=== PATIENT | male | born 1955 | race Caucasian/White ===

== ENCOUNTER → 2016-07-15 | Outpatient (CLI) | payer MEDICARE, OTHER ==
[2016-07-15 12:06] LABS: Non-African American GFR(MDRD) >60 (>60 ml/min/1.73 sqM)
--- NOTE | 2016-07-15 13:55 | MR ---
EXAMINATION TYPE: MR iac wo/w con DATE OF EXAM: 07/15/2016 1:44 PM COMPARISON: 04/02/2012 HISTORY: Vertigo T1-weighted sagittal, diffusion, T2, and FLAIR axial views of the brain are submitted. The high-reso lution T2 axial and postcontrast T1 axial and coronal views of the IACs are submitted. There is no pathologic enhancement of the seventh and eighth cranial nerve complex. There is no acou stic neuroma. Exam is limited by motion artifact no cerebellopontine angle mass. Changes of chronic sinusitis noted. Moderate generalized degenerative change. Nonspecific bilateral a reas of abnormal signal in the white matter are noted. IMPRESSION: 1. No evidence of cerebellopontine angle mass or acoustic schwannoma. 2. Nonspecific white matter changes most typical remote microvascular ischemia. 3. Exam is limited due to extensive motion artifact
== END | disposition home or self-care (01) ==
LOC: RADMRIMAIN 11:34
PROVIDERS: ATTEND Psychiatry & Neurology Neurology
DX: R90.82 White matter disease, unspecified (principal); R42 Dizziness and giddiness; Z13.89 Encounter for screening for other disorder
CPT/HCPCS: 82565; 70553; 36415; A9577

== ENCOUNTER → 2017-01-10 | Outpatient (CLI) | payer MEDICARE, OTHER ==
[2017-01-10 08:58] LABS: CH 33.8; HCT 45.9 % (39.0-53.0); HDW 3.32; HGB 16.6 gm/dL (13.0-17.5); Hyperchromasia Slight; MCH 33.4 pg (25.0-35.0); MCHC 36.3 g/dL (31.0-37.0); Mean Platelet Volume 7.2; RBC 4.99 m/uL (4.30-5.90); RDW 14.3 % (11.5-15.5); WBC 4.9 k/uL (3.8-10.6)
[2017-01-10 09:20] LABS: Anion Gap 12 mmol/L; Blood Urea Nitrogen 23 mg/dL (9-20); Calcium 9.4 mg/dL (8.4-10.2); Carbon Dioxide 26 mmol/L (22-30); Chloride 104 mmol/L (98-107); Cholesterol 173 mg/dL (<200); Glucose 101 mg/dL (74-99); HDL Cholesterol 42 mg/dL (40-60); Non-African American GFR(MDRD) >60 (>60 ml/min/1.73 sqM); Potassium 4.4 mmol/L (3.5-5.1); Sodium 142 mmol/L (137-145); Triglycerides 242 mg/dL (<150)
== END | disposition home or self-care (01) ==
LOC: LABWHC1 08:29
PROVIDERS: ATTEND Internal Medicine Interventional Cardiology
DX: N18.9 Chronic kidney disease, unspecified (principal)
CPT/HCPCS: 36415; 80048; 80061; 85027

== ENCOUNTER → 2017-09-19 | Outpatient (CLI) | payer MEDICARE, OTHER ==
[2017-09-19 11:05] LABS: HCT 49.2 % (39.0-53.0); HGB 17.1 gm/dL (13.0-17.5); Hyperchromasia Moderate; MCH 31.1 pg (25.0-35.0); MCHC 34.8 g/dL (31.0-37.0); MCV 89.3 fL (80.0-100.0); Mean Platelet Volume 6.8; Platelet Count 184 k/uL (150-450); Poikilocytosis Slight; RBC 5.51 m/uL (4.30-5.90); RDW 13.9 % (11.5-15.5); WBC 4.9 k/uL (3.8-10.6)
[2017-09-19 11:21] LABS: Calcium 10.2 mg/dL (8.4-10.2); Potassium 4.7 mmol/L (3.5-5.1)
== END | disposition home or self-care (01) ==
LOC: LABWHC1 10:44
PROVIDERS: ATTEND Internal Medicine Interventional Cardiology
DX: N18.9 Chronic kidney disease, unspecified (principal); I12.9 Hypertensive chronic kidney disease with stage 1 through stage 4 chronic kidney disease, or unspecified chronic kidney disease
CPT/HCPCS: 36415; 80048; 80061; 85027

== ENCOUNTER → 2018-01-11 | Outpatient (CLI) | payer MEDICARE, OTHER ==
[2018-01-11 11:38] LABS: ALT 41 U/L (21-72); AST 26 U/L (17-59); Cholesterol 192 mg/dL (<200); HDL Cholesterol 40 mg/dL (40-60); LDL Cholesterol,Calculated 113 mg/dL (0-99); Triglycerides 196 mg/dL (<150)
== END | disposition home or self-care (01) ==
LOC: LABWHC1 11:09
PROVIDERS: ATTEND Nurse Practitioner Adult Health
DX: E78.2 Mixed hyperlipidemia (principal)
CPT/HCPCS: 36415; 80061; 84450; 84460

== ENCOUNTER → 2018-08-04 | Outpatient (CLI) | payer MEDICARE, OTHER ==
[2018-08-04 08:36] LABS: HCT 49.4 % (39.0-53.0); HGB 17.2 gm/dL (13.0-17.5); MCH 31.9 pg (25.0-35.0); MCHC 34.9 g/dL (31.0-37.0); MCV 91.4 fL (80.0-100.0); Mean Platelet Volume 6.6; Platelet Count 189 k/uL (150-450); WBC 5.8 k/uL (3.8-10.6)
[2018-08-04 17:40] LABS: Anion Gap 5.5 mmol/L (4.00-12.00); Calcium 9.3 mg/dL (8.7-10.3); Carbon Dioxide 26.5 mmol/L (21.6-31.8); Potassium 4.7 mmol/L (3.5-5.5)
== END | disposition home or self-care (01) ==
LOC: LABWHC1 08-03 10:02
PROVIDERS: ATTEND Internal Medicine Interventional Cardiology
DX: E78.5 Hyperlipidemia, unspecified (principal); I10 Essential (primary) hypertension
CPT/HCPCS: 36415; 80048; 80061; 85027

== ENCOUNTER → 2021-01-08 | Outpatient (CLI) | payer MEDICARE, OTHER ==
--- NOTE | 2021-01-08 09:21 | MR ---
EXAMINATION TYPE: MR knee RT wo con DATE OF EXAM: 01/08/2021 COMPARISON: 04/18/2013 HISTORY: Right knee pain, knee buckled, trouble walking TECHNIQUE: Multiplanar, multisequence imaging of the right knee is performed without IV contrast. FINDINGS: This study is markedly degraded by motion. MEDIAL MENISCUS: Grossly intact. LATERAL MENISCUS: There is a macerated lateral meniscal tear. CRUCIATE LIGAMENTS: The anterior and posterior cruciate ligaments are intact and unremarkable. COLLATERAL LIGAMENTS: The medial collateral ligament is intact. The iliotibial and and biceps femoris are intact. The lateral collateral ligament is not well seen. EXTENSOR MECHANISM: Visualized quadriceps and patellar tendons are intact. EFFUSION: There is a large knee joint effusion which contains debris. POPLITEAL CYST: No popliteal/العراقي cyst. CARTILAGE: There are full-thickness articular cartilage defects of the lateral femoral condyle and la teral tibial plateau (grade 4). There are near full-thickness cartilage defects of the patella and tr ochlea (grade 3). There are partial-thickness articular cartilage defects of the medial femoral condy le and medial tibial plateau (grade 2-3). BONE MARROW SIGNAL: No focal abnormal marrow signal is appreciated. OTHER: There is a 1.6 cm heterogeneous lesion in the popliteal fossa. IMPRESSION: Severely motion degraded study. 1. Macerated lateral meniscal tear. 2. Lateral collateral ligament is not well seen 3. Tricompartmental articular cartilage defects. 4. Large debris-containing joint effusion. 5. 1.6 cm heterogeneous lesion in the popliteal fossa is nonspecific but may represent intra-articula r bodies. Correlation with plain radiograph may be helpful.
== END | disposition home or self-care (01) ==
LOC: RADMRIMAIN 08:05
PROVIDERS: ATTEND Family Medicine
DX: M23.300 Other meniscus derangements, unspecified lateral meniscus, right knee (principal); M23.91 Unspecified internal derangement of right knee; M25.461 Effusion, right knee

== ENCOUNTER → 2021-02-08 | Outpatient (CLI) | payer MEDICARE, OTHER ==
[2021-02-08 07:35] LABS: HCT 47.7 % (39.0-53.0); HGB 16.3 gm/dL (13.0-17.5); MCH 31.4 pg (25.0-35.0); MCHC 34.1 g/dL (31.0-37.0); MCV 91.9 fL (80.0-100.0); Mean Platelet Volume 7.1; Platelet Count 221 k/uL (150-450); Poikilocytosis Slight; RBC 5.18 m/uL (4.30-5.90); RDW 14.1 % (11.5-15.5); WBC 6.3 k/uL (3.8-10.6)
[2021-02-08 07:46] LABS: ALT 17 U/L (4-49); AST 23 U/L (17-59); African American GFR (CKD) >90 (>60 ml/min/1.73 sqM); Albumin 4.5 g/dL (3.5-5.0); Alkaline Phosphatase 89 U/L (38-126); Anion Gap 9 mmol/L; Blood Urea Nitrogen 16 mg/dL (9-20); Calcium 9.6 mg/dL (8.4-10.2); Carbon Dioxide 24 mmol/L (22-30); Chloride 107 mmol/L (98-107); Glucose 126 mg/dL (74-99); Non-African American GFR(CKD) 81 (>60 ml/min/1.73 sqM); Potassium 4.1 mmol/L (3.5-5.1); Sodium 140 mmol/L (137-145)
[2021-02-08 08:05] LABS: Appearance,Urine Clear (Clear); Bilirubin,Urine Negative (Negative); Blood,Urine Negative (Negative); Color,Urine Yellow; Glucose,Urine (UA) Negative (Negative); Ketones,Urine Negative (Negative); Leukocyte Esterase,Urine Negative (Negative); Nitrite,Urine Negative (Negative); PH, Urine 5.5 (5.0-8.0); Protein,Urine Negative (Negative); Specific Gravity,Urine 1.019 (1.001-1.035); Urobilinogen,Urine <2.0 mg/dL (<2.0)
== END | disposition home or self-care (01) ==
LOC: LABPAT 07:01
PROVIDERS: ATTEND Orthopaedic Surgery
DX: Z01.812 Encounter for preprocedural laboratory examination (principal)
CPT/HCPCS: 36415; 80053; 81003; 85027; 85610; 85730; 87070

== ENCOUNTER → 2021-02-10 | Outpatient (CLI) | payer MEDICARE, OTHER | END | disposition home or self-care (01) | LOC: LABPAT 07:05 | PROVIDERS: ATTEND Orthopaedic Surgery | DX: Z01.818 Encounter for other preprocedural examination (principal); I48.91 Unspecified atrial fibrillation; R94.31 Abnormal electrocardiogram [ECG] [EKG] | CPT/HCPCS: 93005 ==

== ENCOUNTER 2021-03-08 05:33 | Day surgery (SDC) | payer MEDICARE, OTHER ==
[2021-02-26 09:55] VITALS: BMI 26.9
[~2021-03-08 05:33] MED LIST: ACETAMINOPHEN TAB 500 MG TAB PO PRN; GABAPENTIN 300 MG CAP PO PRN; MELOXICAM 7.5 MG TAB PO PRN; ONDANSETRON 4 MG/2 ML VIAL IVP PRN; ROPIVACAINE/EPI/CLONIDINE/KET 50 ML SYRINGE MISCELLANE PRN; TRANEXAMIC ACID 1,000 MG in SODIUM CHLORIDE 0.9% 100 ML IVPB PRN
[2021-03-08] MEDS ORDERED: MIDAZOLAM 2 MG/2 ML VIAL IV PRN (05:42)
[2021-03-08] MEDS ORDERED: LACTATED RINGERS 1,000 ML IV ONE ×2 (06:04→09:08)
[2021-03-08] MEDS ORDERED: DILTIAZEM ORAL 60 MG TAB PO STA (06:50)
[2021-03-08] MEDS ORDERED: HYDROmorphone 0.5 MG/0.5 ML SYRINGE IVP PRN ×3 (07:00→10:05)
[2021-03-08] MEDS ORDERED: DEXAMETHASONE SOD PHOSPHATE 4 MG/ML 1 ML VIAL IVP ONE (07:01)
[2021-03-08] MEDS ORDERED: MIDAZOLAM 2 MG/2 ML VIAL IVP ONE (07:09)
[2021-03-08] MEDS ORDERED: MIDAZOLAM 2 MG/2 ML VIAL ONE (08:06)
[2021-03-08] MEDS ORDERED: LIDOCAINE 1% INJ 10MG/ML (20 ML MDV) ONE (08:06)
[2021-03-08] MEDS ORDERED: PHENYLEPHRINE-0.9% NACL SYG 1,000 MCG/10 ML SYRINGE ONE (08:06)
[2021-03-08] MEDS ORDERED: PROPOFOL 10 MG/ML 20 ML VIAL IV ONE (08:06)
[2021-03-08] MEDS ORDERED: TRANEXAMIC ACID 1,000 MG/10 ML VIAL ONE (08:06)
[2021-03-08] MEDS ORDERED: ePHEDrine SULFATE/0.9% NACL/PF 50 MG/5 ML SYRINGE IV ONE (08:06)
[2021-03-08] MEDS ORDERED: fentaNYL (PF) 50 MCG/ML 2 ML AMP ONE (08:06)
[2021-03-08] MEDS ORDERED: SUCCINYLCHOLINE CHLORIDE 100 MG/5 ML SYR IV ONE (08:06)
[2021-03-08] MEDS ORDERED: SODIUM CHLORIDE 0.9% 100 ML BAG ONE (08:06)
[2021-03-08] MEDS ORDERED: ceFAZolin 3,000 MG in SODIUM CHLORIDE 0.9% IRRIGATIO 3,000 ML IRRIGATION ONE (08:10)
--- NOTE | 2021-03-08 09:58 | P.OP ---
Date of Procedure: 03/08/21 Procedure(s) Performed: PREOPERATIVE DIAGNOSIS: Right knee severe osteoarthritis with genu valgum and flexion contracture POSTOPERATIVE DIAGNOSIS: 1. Right knee severe osteoarthritis with genu valgum and flexion contracture OPERATION: Right knee cemented total replacement arthroplasty. ANESTHESIA: Spinal ESTIMATED BLOOD LOSS: 50 ml. MOLDING PLASTERER: Kiersten Joy PA-C (assistance with: patient positioning, retraction, exposure, hemostasis, leg positioning, implantation, irrigation, closure, nehemias ssing) COMPLICATIONS: None apparent. COMPONENTS IMPLANTED: Persona system from [employer] INDICATIONS: Mr. Sheikh is a 65 year old male with a history of right knee osteoarthritis and mild to moderate genu valgum and approximately 12 flexion contracture. The operation of knee replacement has been discussed at length in the office, as well as potential risks and complications. These are inclusive of, but not limited to: bleeding, infection, scarring, discomfort, blood vessel and nerve damage, need for further surgery, failure to relieve symptoms, persistence, recurrence, or worsening of problems, loosening, dislocation, wear, blood clot, pulmonary embolism, , gait dysfunction, stiffness, and other risks as discussed in the office. The patient elects to proceed and the consent form has been signed. PROCEDURE: The patient was taken to the operating room and positioned on the operating room table in the supine position. Anesthesia was initiated. Care was taken to make sure that all pressure points were adequately padded. The operative lower extremity was prepped and draped in the usual aseptic fashion using ChloraPrep. Ioban drape was used for the case and the patient received intravenous antibiotics within one hour of the incision. A pneumotourniquet and leg sahu were used for the case. The limb was exsanguinated with an Esmarch bandage and the tourniquet was inflated to 350 mmHg. Time-out was called confirming the patients identity, side, procedure and administration of antibiotics. The incision was then created midline directly over the knee, carried down through skin and into the subcutaneous tissues and down to fascia. Full thickness subcutaneous medial flap was developed. Medial parapatellar arthrotomy was performed and the interior of the knee was inspected. There was end-stage osteoarthritis of the knee with a mild to moderate genu valgum type deformity. Bone quality was good. The fat pad was excised and limited proximal medial release on the tibia was completed using meticulous dissection. The anterior cruciate ligament was taken down. The exposure was excellent. The knee was flexed 90 degrees and the patella was everted. A spot was chosen on the femur approximately 1 cm anterior to the posterior cruciate ligament insertion and an intramedullary hole was created within the femur. The intramedullary guide was then set to 5 degrees of valgus. The distal cutting block was attached and pinned into position. An appropriate amount of distal femoral resection was set. The oscillating saw was then used to make the distal femoral cut. This cut was confirmed to be flat with the flat end of an osteotome. The retractors were placed around the tibia and the tibial surface was addressed. The angle and depth of resection was adjusted using an extramedullary cutting guide. The guide had a built-in 3 degree posterior slope cut. Once the cutting guide was adjusted appropriately and in line with the axis of the tibia and confirmed to be in good position in relation to the second metatarsal and transmalleolar axis, the tibial cut was then created with protection of the posterior neurovascular structures and the collateral ligaments. The tibial cut surface was removed and sized. Femoral sizing was then accomplished using anterior referencing. Care was taken to analyze the posterior condyles for signs of deficiency or severe wear, and adjustments to the guide were made, as appropriate. Moderate to severe posterior spurring was noted, as well as a moderately to severely tight posterior cruciate ligament which therefore was released, see below. 3 degree external rotation pins were placed. The cutting jig for the femur was applied to these pins. The planned cuts were further analyzed prior to performing them with the oscillating saw. No femoral notching was produced. Bone fragments were removed and the cut surfaces were finished, as necessary, with a reciprocating saw. Spacer block technique was then used to confirm that the flexion and extension gaps were equal. Soft tissue releases and adjustment of the tibial and/or femoral cuts were made, as necessary, until the gaps were equal. This included release of the posterior cruciate ligament, which was tight in this patient and, if left unreleased, would have resulted in poor kinematics and possibly early loosening. The femur was then further finished for a posterior cruciate ligament substituting component. Patellar resurfacing was performed using a reamer. The size of the required patellar component was estimated and the patellar surface was then reamed down to a residual thickness which would recreate the [place] thickness with the component. The exact placement of the patellar component was adjusted for position based on preoperative x-rays and intraoperative findings. Prior to placing trial components, anesthetic solution consisting of ropivicaine with epinephrine, ketorolac, and clonidine was injected carefully and methodically in a grid pattern using aspiration technique into the soft tissue around the knee circumferentially, starting with the deeper tissues first and progressing to fascia, and then finally the skin/subcutaneous tissue. Particular care was taken when injecting the posterior capsule. The trial components were inserted. The tibial tray was allowed to self center and the patella was noted to track very well. The position of the tibial component was marked and the tibia was then finished for a stemmed tibial component. Cement was mixed on the back table and applied to the final components. Trial components were removed and the cut surfaces of the bone were pulse lavaged thoroughly and dried. Cement was then applied to the tibial surface and pressurized into the surface using finger pressurization technique. The tibial component was then applied and excess cement was removed after it was impacted securely and noted to be flush with the cut surface. In similar fashion, the cement was applied to the cut femoral surface, pressurized in using finger pressurization and the component was impacted into place. Excess cement was removed. The polyethylene spacer was then implanted and locked into position. The patellar component was then applied in similar technique and a patellar clamp was used to hold the patella in place as the cement hardened. Once the cement had fully hardened, the knee was reinspected. Any other cement extrusion was removed and final kinematic testing showed range of motion from 0 to 130 degrees with excellent stability, both medially and laterally and appropriate alignment of the leg. Patellar tracking was excellent. The knee was then thoroughly pulse lavaged with normal saline. The tourniquet was deflated and hemostasis was obtained with electrocautery and IV tranexamic acid, 1 g given at the start of the operation and 1 g at the start of closure. Closure was with #2 Ethibond in the fascia and supplemented with #2 Quill, 2-0 Vicryl suture was used for the subcutaneous tissues and 3-0 Quill for the skin. Dermabond/Steri-Strips were then applied. A lightly compressive dressing was applied using Webril and an Cesar wrap. The patient was then transferred to stretcher and taken to the recovery room in stable condition. Sponge and needle counts were correct.
[2021-03-08] MEDS ORDERED: MAGNESIUM HYDROXIDE 2,400 MG/10 ML CUP PO PRN (10:05)
[2021-03-08] MEDS ORDERED: TEMAZEPAM 15 MG CAP PO PRN (10:05)
[2021-03-08] MEDS ORDERED: NA PHOS,M-B/NA PHOS,DI-BA 133 ML ENEMA RECTAL PRN (10:05)
[2021-03-08] MEDS ORDERED: HYDROmorphone 0.2 MG/1 ML SYRINGE IVP PRN (10:05)
[2021-03-08] MEDS ORDERED: ONDANSETRON 4 MG/2 ML VIAL IVP PRN (10:05)
[2021-03-08] MEDS ORDERED: NALOXONE 0.4 MG/ML 1 ML VIAL IV PRN (10:05)
[2021-03-08] MEDS ORDERED: bisacodyL 10 MG SUPP RECTAL PRN (10:05)
--- NOTE | 2021-03-08 10:36 | XR ---
EXAMINATION TYPE: XR knee limited RT DATE OF EXAM: 03/08/2021 COMPARISON: NONE HISTORY: 65-year-old male evaluation for postoperative abnormality and alignment TECHNIQUE: 2 views FINDINGS: Images show placement of right total knee arthroplasty. Both distal femoral and proximal ti bial components of the prosthesis appear well seated without periprosthetic fracture. Alignment gross ly anatomic. Anterior soft tissue swelling with soft tissue air as well as intra-articular air relate d to recent operation. IMPRESSION: Uncomplicated postoperative appearance right total knee arthroplasty.
[2021-03-08] MEDS ORDERED: ROPIVACAINE 0.2%-NS ON-Q PUMP 2 MG/ML EACH MISCELLANE ONE (10:37)
[2021-03-08] MEDS ORDERED: ROPIVACAINE 0.2%-NS ON-Q PUMP 1,090 MG, EMPTY PAIN BALL 1 EACH MISCELLANE PRN (11:08)
--- NOTE | 2021-03-08 12:48 | P.ANPRN ---
Procedure Note - Anesthesia - Nerve Block Performed Right Adductor Canal Infusion Time Out Performed: Yes ([id number]) Date of Procedure: 03/08/21 Procedure Start Time: 07: Procedure Stop Time: 07:19 Location of Patient: PreOp Indication: Acute Post-Operative Pain, Dx/Pain Location (Right Knee), Requested by Surgeon Specifically requested for management of pain by Dr.: Vikas Bolden Sedation Type: Sedate with meaningful contact maintained Preparation: Sterile Prep, Sterile Dressing Position: Supine Catheter: Indwelling Needle Types: Pajunk Needle Gauge: 18 Ultrasound used to visualize needle placement: Yes Ultrasound used to observe medication spread: Yes Injectate: 0.5% Ropivacaine (see comment for volume) (20 cc) Blood Aspirated: No Pain Paresthesia on Injection Noted: No Resistance on Injection: Normal Image Stored and Saved: Yes Events: Uneventful and Well Tolerated Right iPack Single Time Out Performed: Yes Date of Procedure: 03/08/21 Procedure Start Time: : Procedure Stop Time: 07:27 Location of Patient: PreOp Indication: Acute Post-Operative Pain, Dx/Pain Location (Right Knee), Requested by Surgeon Specifically requested for management of pain by Dr.: Vikas Bolden Sedation Type: Sedate with meaningful contact maintained Preparation: Sterile Prep Position: Left Lateral Catheter: None Needle Types: Pajunk Needle Gauge: 21 Ultrasound used to visualize needle placement: Yes Ultrasound used to observe medication spread: Yes Injectate: 0.5% Ropivacaine (see comment for volume) (20 cc) Blood Aspirated: No Pain Paresthesia on Injection Noted: No Resistance on Injection: Normal Image Stored and Saved: Yes Events: Uneventful and Well Tolerated
--- NOTE | 2021-03-08 14:11 | P.CONS ---
History of Present Illness - Reason for Consult Atrial fibrillation - History of Present Illness Patient is a pleasant 65-year-old male admitted for a severe left knee osteoarthritis patient underwent total knee arthroplasty on the left side. Patient is a fairly controlled at this time. Patient does have history of atrial fibrillation is on Cardizem for that and patient is encouraged today morning patient is on Eliquis for atrial fibrillation. REVIEW OF SYSTEMS: CONSTITUTIONAL: No fever, no malaise, no fatigue. HEENT: No recent visual problems or hearing problems. Denied any sore throat. CARDIOVASCULAR: No chest pain, orthopnea, PND, no palpitations, no syncope. PULMONARY: No shortness of breath, no cough, no hemoptysis. GASTROINTESTINAL: No diarrhea, no nausea, no vomiting, no abdominal pain. NEUROLOGICAL: No headaches, no weakness, no numbness. HEMATOLOGICAL: Denies any bleeding or petechiae. GENITOURINARY: Denies any burning micturition, frequency, or urgency. MUSCULOSKELETAL/RHEUMATOLOGICAL: Denies any joint pain, swelling, or any muscle pain. ENDOCRINE: Denies any polyuria or polydipsia. The rest of the 14-point review of systems is negative. PHYSICAL EXAMINATION: GENERAL: The patient is alert and oriented x3, not in any acute distress. Well developed, well nourished. HEENT: Pupils are round and equally reacting to light. EOMI. No scleral icterus. No conjunctival pallor. Normocephalic, atraumatic. No pharyngeal erythema. No thyromegaly. CARDIOVASCULAR: S1 and S2 present. No murmurs, rubs, or gallops. PULMONARY: Chest is clear to auscultation, no wheezing or crackles. ABDOMEN: Soft, nontender, nondistended, normoactive bowel sounds. No palpable organomegaly. MUSCULOSKELETAL: Deferred to orthopedic surgery EXTREMITIES: No cyanosis, clubbing, or pedal edema. NEUROLOGICAL: Gross neurological examination did not reveal any focal deficits. SKIN: No rashes. Assessment and plan -Atrial fibrillation paroxysmal recent is presently rate controlled sinus rhythm: Patient will be resumed on Cardizem and Eliquis -Left knee arthroplasty -Hypertension: Cardizem was resumed -Depression DVT prophylaxis: On Eliquis Past Medical History Past Medical History: Atrial Fibrillation, Hypertension, Osteoarthritis (OA), Renal Disease Additional Past Medical History / Comment(s): hx renal failure in the past, no current problems w/remaining kidney History of Any Multi-Drug Resistant Organisms: None Reported Additional Past Surgical History / Comment(s): rt nephrectomy Past Anesthesia/Blood Transfusion Reactions: No Reported Reaction Smoking Status: Never smoker - Past Family History Father Family Medical History: Cancer Medications and Allergies Home Medications Medication Instructions Recorded Confirmed Type Apixaban [Eliquis] 5 mg PO BID 02/26/21 02/26/21 History Diltiazem Cd [Cardizem CD] 120 mg PO DAILY 02/26/21 02/26/21 History Gabapentin [Neurontin] 300 mg PO BID 5 Days #10 cap 03/08/21 Rx HYDROcodone/APAP 7.5-325MG [[place] 1 - 2 tab PO Q6HR PRN #32 tab 03/08/21 Rx 7.5-325] Sennosides-Docusate Sodium 1 tab PO BID #60 tablet 03/08/21 Rx [Senokot-S] Allergies Allergy/AdvReac Type Severity Reaction Status Date / Time No Known Allergies Allergy Verified 02/26/21 09:50 Physical Exam Vitals: Vital Signs Temp Pulse Pulse Resp BP BP Pulse Ox 03/08/21 12:32 66 18 119/80 96 03/08/21 12:02 55 L 18 117/77 97 03/08/21 11:31 52 L 18 112/70 96 03/08/21 11:02 76 18 118/81 96 03/08/21 10:47 54 L 16 116/79 97 03/08/21 10:32 62 16 120/94 96 03/08/21 10:16 63 16 123/84 99 03/08/21 10:06 97.1 F L 88 16 127/88 99 03/08/21 07:51 78 16 125/105 96 03/08/21 06:31 87 18 148/96 100 03/08/21 06:02 97.4 F L 64 18 157/112 165/110 97 Intake and Output 03/07/21 03/08/21 03/08/21 22:59 06:59 14:59 Intake Total 500 1351 Output Total 50 Balance 500 1301 Intake: IV 500 1351 Output: Estimated Blood Loss 50 Other: Weight 82 kg
[2021-03-08] MEDS: LACTATED RINGERS 1,000 ML IV SCH (20:53)
[2021-03-08] MEDS ORDERED: SENNOSIDES-DOCUSATE SODIUM 1 EACH TAB PO SCH (21:00)
[2021-03-08] MEDS: APIXABAN 5 MG TAB PO SCH (22:53)
[2021-03-09] MEDS: LACTATED RINGERS 1,000 ML IV SCH (05:29)
[2021-03-09] MEDS: APIXABAN 5 MG TAB PO SCH (07:14)
[2021-03-09] MEDS: hydrOXYzine pamoate 25 MG CAP PO PRN ×2 (07:15→13:29)
[2021-03-09] MEDS: HYDROcodone/APAP 7.5-325MG 1 EACH TAB PO PRN ×2 (07:15→13:28)
[2021-03-09 08:15] LABS: African American GFR (CKD) >90 (>60 ml/min/1.73 sqM); Anion Gap 8 mmol/L; Blood Urea Nitrogen 15 mg/dL (9-20); Calcium 8.7 mg/dL (8.4-10.2); Carbon Dioxide 22 mmol/L (22-30); Chloride 104 mmol/L (98-107); Glucose 140 mg/dL (74-99); Non-African American GFR(CKD) >90 (>60 ml/min/1.73 sqM); Sodium 134 mmol/L (137-145)
[2021-03-09] MEDS ORDERED: METOPROLOL TARTRATE 50 MG TAB PO STA (08:27)
[2021-03-09] MEDS ORDERED: DILTIAZEM CD 120 MG CAP.ER.24H PO SCH (09:00)
--- NOTE | 2021-03-09 09:11 | P.PN ---
Subjective Progress Note Date: 03/09/21 This is a 65-year-old male who is status post right total knee arthroplasty. This is postoperative day #1 and patient is seen and evaluated at bedside today. Patient states that he is doing well and was able to walk with physical therapy. Patient states that his pain is well controlled. Per nursing, the patient is tachycardic in atrial flutter. The patient does have a history of at rial fibrillation and takes Eliquis for this. Objective - Vital Signs Vital signs: Vital Signs Temp 98.8 F 03/09/21 08:59 Pulse 147 H 03/09/21 08:59 Resp 17 03/09/21 08:59 BP 117/83 03/09/21 08:59 Pulse Ox 95 03/09/21 08:59 Intake & Output 03/08/21 03/09/21 03/09/21 18:59 06:59 18:59 Intake Total 1351 240 Output Total 50 Balance 1301 240 Weight 82 kg Intake: IV 1351 Oral 240 Output: Estimated Blood Loss 50 Other: Voiding Method Toilet Toilet # Voids 2 9 - Exam Vital signs are stable. Patient is in no acute distress and is alert and oriented 3. Calf is soft and nontender to palpation. Dressing is clean, dry, and intact. Patient has full foot and ankle motion without pain or difficulty. Sensation intact. Neurovascular status and circulatory status are intact. - Labs CBC & Chem 7: 03/09/21 07:48 Labs: Abnormal Lab Results - Last 24 Hours (Table) 03/09/21 Range/Units 07:48 Sodium 134 L (137-145) mmol/L Glucose 140 H (74-99) mg/dL Assessment and Plan (1) Osteoarthritis of right knee Current Visit: Yes Status: Acute Code(s): M17.11 - UNILATERAL PRIMARY OSTEOARTHRITIS, RIGHT KNEE SNOMED Code(s): 350792650376548 (2) Status post total right knee replacement Current Visit: Yes Status: Acute Code(s): Z96.651 - PRESENCE OF RIGHT ARTIFICIAL KNEE JOINT SNOMED Code(s): 0792978389406 Plan: #1 Continue with routine postoperative care and pain control, leave dressing in place for ten days. #2 Anticoagulation with Eliquis. #3 Physical therapy today. #4 Appreciate input from medicine. and cardiology. #5 Anticipate discharge home with home care in the next 24-28 hours.
[2021-03-09 09:55] VITALS: RESP 18
[2021-03-09 11:43] LABS: Basophils # (A) 0.01 X 10*3/uL (0.00-0.10); Basophils % (A) 0.1 %; Eosinophils # (A) 0.01 X 10*3/uL (0.04-0.35); Eosinophils % (A) 0.1 %; HCT 38.9 % (39.6-50.0); HGB 13.6 g/dL (13.0-17.0); Lymphocytes # (A) 0.73 X 10*3/uL (0.90-5.00); Lymphocytes % (A) 8.3 %; MCH 30.8 pg (27.0-32.0); MCV 88.2 fL (80.0-97.0); Mean Platelet Volume 10.1 fL (9.5-12.2); Monocytes % (A) 10.3 %; Neutrophils # (A) 7.09 X 10*3/uL (1.80-7.70); Platelet Count 173 X 10*3/uL (140-440); RBC 4.41 X 10*6/uL (4.40-5.60); RDW 13.6 % (11.5-14.5); WBC 8.76 X 10*3/uL (4.50-10.00)
[2021-03-09 11:48] LABS: INR 1.09 (0.90-1.11); Prothrombin Time 11.8 sec (9.9-11.9)
--- NOTE | 2021-03-09 13:07 | P.PN ---
Subjective Progress Note Date: 03/09/21 Patient is a pleasant 65-year-old male admitted for a severe right knee osteoarthritis patient underwent total knee arthroplasty on the right side. Patient is a fairly controlled at this time. Patient does have history of atrial fibrillation is on Cardizem for that and patient is encouraged today morning patient is on Eliquis for atrial fibrillation. 03/09/2021 Patient is cleared medically for discharge. Patient did have an episode of afib RVR this morning due to his Cardizem not be resumed after surgery. Patient received his home dose of Cardizem this morning and was evaluated by cardiology services. Patient is now A. fib rate controlled and is cleared by cardiology for discharge. Patient can follow-up Dr. Serrano in the office. All other recommendations per surgical services. Patient denies any chest pain, palpitations, cough or shortness of breath at the time of my assessment. Patient denies any nausea vomiting or diarrhea. Patient denies any bowel movement however states he is passing gas. Patient denies any other issues, physical exam was negative for any focal deficits. Lungs are clear. REVIEW OF SYSTEMS: CONSTITUTIONAL: No fever, no malaise, no fatigue. HEENT: No recent visual problems or hearing problems. Denied any sore throat. CARDIOVASCULAR: No chest pain, orthopnea, PND, no palpitations, no syncope. PULMONARY: No shortness of breath, no cough, no hemoptysis. GASTROINTESTINAL: No diarrhea, no nausea, no vomiting, no abdominal pain. NEUROLOGICAL: No headaches, no weakness, no numbness. HEMATOLOGICAL: Denies any bleeding or petechiae. GENITOURINARY: Denies any burning micturition, frequency, or urgency. MUSCULOSKELETAL/RHEUMATOLOGICAL: Denies any joint pain, swelling, or any muscle pain. ENDOCRINE: Denies any polyuria or polydipsia. The rest of the 14-point review of systems is negative. PHYSICAL EXAMINATION: GENERAL: The patient is alert and oriented x3, not in any acute distress. Well developed, well nourished. HEENT: Pupils are round and equally reacting to light. EOMI. No scleral icterus. No conjunctival pallor. Normocephalic, atraumatic. No pharyngeal erythema. No thyromegaly. CARDIOVASCULAR: S1 and S2 present. No murmurs, rubs, or gallops. PULMONARY: Chest is clear to auscultation, no wheezing or crackles. ABDOMEN: Soft, nontender, nondistended, normoactive bowel sounds. No palpable organomegaly. MUSCULOSKELETAL: Deferred to orthopedic surgery EXTREMITIES: No cyanosis, clubbing, or pedal edema. NEUROLOGICAL: Gross neurological examination did not reveal any focal deficits. SKIN: No rashes. Assessment and plan -Atrial fibrillation paroxysmal recent is presently rate controlled sinus rhythm: Patient will be resumed on Cardizem and Eliquis -Right knee arthroplasty -Hypertension: Cardizem was resumed -Depression DVT prophylaxis: On Eliquis Patient is cleared medically for discharge. Patient is arranged for PT OT at home status post right knee total arthroplasty. Boomy for this consultation and allowing us to participate in the care of this patient. Objective - Vital Signs Vital signs: Vital Signs Temp 98.8 F 03/09/21 08:59 Pulse 96 03/09/21 12:02 Resp 18 03/09/21 09:53 BP 115/70 03/09/21 09:53 Pulse Ox 95 03/09/21 09:53 Intake & Output 03/08/21 03/09/21 03/09/21 18:59 06:59 18:59 Intake Total 1351 240 Output Total 50 Balance 1301 240 Weight 82 kg Intake: IV 1351 Oral 240 Output: Estimated Blood Loss 50 Other: Voiding Method Toilet Toilet Toilet Urinal # Voids 2 9 - Labs CBC & Chem 7: 03/09/21 07:06 03/09/21 07:48 Labs: Abnormal Lab Results - Last 24 Hours (Table) 03/09/21 03/09/21 Range/Units 07:06 07:48 Hct 38.9 L (39.6-50.0) % Lymphocytes # 0.73 L (0.90-5.00) X 10*3/uL Eosinophils # 0.01 L (0.04-0.35) X 10*3/uL Sodium 134 L (137-145) mmol/L Glucose 140 H (74-99) mg/dL
--- NOTE | 2021-03-09 13:12 | P.CRDCN ---
History of Present Illness History of present illness: HISTORY OF PRESENTING ILLNESS This is a pleasant 65-year-old male past medical history significant for persistent atrial fibrillation on Eliquis, hypertension, dyslipidemia, right nephrectomy. He follows in the office with Dr. Serrano. We have been asked to see in consultation for atrial fibrillation with rapid ventricular response. Patient admitted to hospital for right total knee replacement arthroplasty on 03.08.[address] Bolden. This morning patient went to atrial fibrillation with rapid ventricular response, HR 140s. EKG performed which revealed atrial fibrillation with RVR. Patient is on Cardizem 120mg daily and Eliquis 5mg BID. Patient given one dose of metoprolol tartrate 50mg PO x1 and had improvement with heart rate in 80s-90s in atrial fibrillation. patient seen and examined at bedside, no acute distress. He denies any chest pain, lightheadedness, dizziness, palpitations, shortness of breath. His right knee pain is currently controlled. DIAGNOSTICS Telemetry tracings indicate atrial fibrillation heart rates better controlled 80s90s. Laboratory reviewed,WBC 4.7, hemoglobin 13.6, platelets 173, sodium 134, potassium 4.0, BUN 15, serum creatinine 0.8, troponin negative 1 Current cardiac medications includeEliquis 5 mg twice a day, Cardizem 120 mg daily. Echocardiogram 03/2020 revealed EF of 55%, mild to moderate mitral regurgitation, mild tricuspid regurgitation. Lexiscan stress test 01/28/2021 which was negative for stress-induced ischemia. REVIEW OF SYSTEMS At the time of my exam: CONSTITUTIONAL: Denies fever or chills. CARDIOVASCULAR: Denies chest pain, shortness of breath, orthopnea, PND or palpitations. RESPIRATORY: Denies cough. GASTROINTESTINAL: Denies abdominal pain, diarrhea, constipation, nausea or vomiting. MUSCULOSKELETAL: Denies myalgias. NEUROLOGIC: Denies numbness, tingling, headacbe or weakness. ENDOCRINE: Denies fatigue, weight change, polydipsia or polyurina. GENITOURINARY: Denies burning, hematuria or urgency with micturation. HEMATOLOGIC: Denies history of anemia or bleeding. PHYSICAL EXAMINATION blood pressure 115/70, heart rate 96, afebrile, maintaining oxygen saturations on room air. CONSTITUTIONAL: No apparent distress. HEENT: Head is normocephalic. Pupils are equal, round. Sclerae anicteric. Mucous membranes of the mouth are moist. No JVD. No carotid bruit. CHEST EXAMINATION: Lungs are clear to auscultation. No chest wall tenderness is noted on palpation or with deep breathing. HEART EXAMINATION: Irregular rate and rhythm. S1, S2 heard. Systolic murmur at apex, No gallops or rub. ABDOMEN: Soft, nontender. Positive bowel sounds. EXTREMITIES: 2+ peripheral pulses, no lower extremity edema and no calf tenderness. Right knee covered in bandage. Bilateral lower extremity TERRI hose present. NEUROLOGIC EXAMINATION: Patient is awake, alert and oriented x3. ASSESSMENT Right knee arthroplasty on 03/08/21 Persistent atrial fibrillation with rapid ventricular response, on Eliquis Hypertension Dyslipidemia History of right nephrectomy PLAN Patient's rates are better controlled after 1 dose of metoprolol tartrate 50mg and home cardizem Will start metoprolol tartrate 25mg BID Continue Cardizem and Eliquis From a cardiology perspective, patient is stable to be discharged home. Follow up with Dr. Serrano in 1-2 weeks. Nurse Practitioner note has been reviewed, I agree with a documented findings a nd plan of care. Patient was seen and examined. Past Medical History Past Medical History: Atrial Fibrillation, Hypertension, Osteoarthritis (OA), Renal Disease Additional Past Medical History / Comment(s): hx renal failure in the past, no current problems w/remaining kidney History of Any Multi-Drug Resistant Organisms: None Reported Additional Past Surgical History / Comment(s): rt nephrectomy Past Anesthesia/Blood Transfusion Reactions: No Reported Reaction Smoking Status: Never smoker - Past Family History Father Family Medical History: Cancer Medications and Allergies Home Medications Medication Instructions Recorded Confirmed Type Apixaban [Eliquis] 5 mg PO BID 02/26/21 02/26/21 History Diltiazem Cd [Cardizem CD] 120 mg PO DAILY 02/26/21 02/26/21 History Gabapentin [Neurontin] 300 mg PO BID 5 Days #10 cap 03/08/21 Rx HYDROcodone/APAP 7.5-325MG [[place] 1 - 2 tab PO Q6HR PRN #32 tab 03/08/21 Rx 7.5-325] Sennosides-Docusate Sodium 1 tab PO BID #60 tablet 03/08/21 Rx [Senokot-S] Metoprolol Tartrate [Lopressor] 25 mg PO BID 30 Days #30 tab 03/09/21 Rx Allergies Allergy/AdvReac Type Severity Reaction Status Date / Time No Known Allergies Allergy Verified 02/26/21 09:50 Physical Exam Vitals: Vital Signs Temp Pulse Pulse Resp BP BP Pulse Ox 03/09/21 10:18 106 H 03/09/21 09:53 116 H 18 115/70 95 03/09/21 08:59 98.8 F 147 H 17 117/83 95 03/09/21 08:22 98.7 F 149 H 18 124/90 126/88 96 03/09/21 08:01 142 H 03/09/21 02:19 97.7 F 101 H 18 127/81 95 03/08/21 20:00 66 59 L 18 03/08/21 19:38 97.3 F L 109 H 17 129/85 97 03/08/21 14:25 97.1 F L 59 L 18 127/87 96 03/08/21 12:32 66 18 119/80 96 03/08/21 12:02 55 L 18 117/77 97 03/08/21 11:31 52 L 18 112/70 96 03/08/21 11:02 76 18 118/81 96 03/08/21 10:47 54 L 16 116/79 97 Intake and Output 03/08/21 03/09/21 03/09/21 22:59 06:59 14:59 Intake Total 240 Balance 240 Intake: Oral 240 Other: Voiding Method Toilet Toilet Urinal # Voids 2 9 Results 03/09/21 07:06 03/09/21 07:48 Cardiac Enzymes 03/09/21 Range/Units 07:48 Troponin I <0.012 (0.000-0.034) ng/mL Comprehensive Metabolic Panel 03/09/21 Range/Units 07:48 Sodium 134 L (137-145) mmol/L Potassium 4.0 (3.5-5.1) mmol/L Chloride 104 (98-107) mmol/L Carbon Dioxide 22 (22-30) mmol/L BUN 15 (9-20) mg/dL Creatinine 0.81 (0.66-1.25) mg/dL Glucose 140 H (74-99) mg/dL Calcium 8.7 (8.4-10.2) mg/dL Current Medications Generic Name Dose Route Start Last Admin Trade Name Freq PRN Reason Stop Dose Admin Hydrocodone Bitart/Acetaminophen 1 each 03/08/21 10:05 03/09/21 07:15 Hydrocodone/Apap 7.5-325mg 1 Each Tab PO 04/07/21 10:06 1 each Q6H PRN Administration Pain Scale 6 to 10 Apixaban 5 mg 03/08/21 21:00 03/09/21 07:14 Apixaban 5 Mg Tab PO 5 mg BID CARLOS Administration Protocol Bisacodyl 10 mg 03/08/21 10:05 Bisacodyl 10 Mg Supp RECTAL 04/07/21 10:06 DAILY PRN Constipation Ropivacaine 1,090 mg/ Bandage/ 0 mg 03/08/21 11:08 Support Products 1 each MISCELLANE 04/07/21 11:09 Q2H PRN Breakthrough Pain Diltiazem HCl 120 mg 03/09/21 09:00 03/09/21 07:15 Diltiazem Cd 120 Mg Cap.Er.24h PO 120 mg DAILY CARLOS Administration Hydromorphone HCl 0.2 mg 03/08/21 10:05 Hydromorphone 0.2 Mg/1 Ml Syringe IVP 04/07/21 10:06 Q3HR PRN Pain Scale 4 to 6 Hydromorphone HCl 0.125 mg 03/08/21 10:05 Hydromorphone 0.5 Mg/0.5 Ml Syringe IVP 04/07/21 10:06 Q3HR PRN Pain Scale 1 to 3 Hydromorphone HCl 0.5 mg 03/08/21 10:05 Hydromorphone 0.5 Mg/0.5 Ml Syringe IVP 04/07/21 10:06 Q3HR PRN Pain Scale 7 to 10 Hydroxyzine Pamoate 25 mg 03/08/21 10:05 03/09/21 07:15 Hydroxyzine Pamoate 25 Mg Cap PO 04/07/21 10:06 25 mg Q4HR PRN Administration Nausea, Anxiety, Pain Control Lactated Ringer's 1,000 mls @ 20 mls/hr 03/08/21 05:42 03/09/21 05:29 Lactated Ringers IV 04/07/21 05:43 Not Given .Q24H CARLOS Magnesium Hydroxide 2,400 mg 03/08/21 10:05 Magnesium Hydroxide 2,400 Mg/10 Ml Cup PO 04/07/21 10:06 DAILY PRN Constipation Naloxone HCl 0.2 mg 03/08/21 10:05 Naloxone 0.4 Mg/Ml 1 Ml Vial IV 04/07/21 10:06 Q2M PRN Opioid Reversal Ondansetron HCl 4 mg 03/08/21 10:05 Ondansetron 4 Mg/2 Ml Vial IVP 04/07/21 10:06 Q8HR PRN Nausea And Vomiting Senna/Docusate Sodium 2 each 03/08/21 21:00 03/08/21 22:53 Sennosides-Docusate Sodium 1 Each Tab PO 04/07/21 21:01 2 each HS CARLOS Administration Sodium Biphosphate/Sodium Phosphate 133 ml 03/08/21 10:05 Na Phos,M-B/Na Phos,Di-Ba 133 Ml Enema RECTAL 04/07/21 10:06 DAILY PRN Constipation Temazepam 15 mg 03/08/21 10:05 03/08/21 22:54 Temazepam 15 Mg Cap PO 04/07/21 10:06 15 mg HS PRN Administration Insomnia Intake and Output 03/08/21 03/09/21 03/09/21 22:59 06:59 14:59 Intake Total 240 Balance 240 Intake: Oral 240 Other: Voiding Method Toilet Toilet Urinal # Voids 2 9 03/09/21 07:48
--- NOTE | 2021-03-09 13:29 | P.DS ---
Providers Expected date of discharge: 03/09/21 Attending physician: Vikas Bolden Consults: 03/08/21 10:05 Consult Physician Routine Consulting Provider: Juan J Sanchez Consult Reason/Comments: Medical management Do you want consulting provider notified?: Yes 03/09/21 07:50 Consult Physician Urgent Consulting Provider: Kristina Parks Consult Reason/Comments: a-flutter, heart rate 140's, hx of a-fib Do you want consulting provider notified?: Yes Primary care physician: Sara Kauffman - Discharge Diagnosis(es) (1) Osteoarthritis of right knee Current Visit: Yes Status: Acute (2) Status post total right knee replacement Current Visit: Yes Status: Acute Hospital Course: This is a 65-year-old male with known history of degenerative arthritis of the right knee. The patient presented for evaluation as an outpatient. After discussion and consideration patient elects to proceed with total knee arthroplasty. The patient is seen preoperatively by Dr. Bolden and medically cleared for surgery by their primary care physician. Patient is admitted to [facility] on 03/08/2021 for total knee arthroplasty. The procedure is performed without complication or sequelae. The patient is doing well postoperatively. Labs and vital signs are stable on day of discharge. The patient was in a. flutter postoperatively. The patient was restarted on his Cardizem and is now back to rate controlled atrial fibrillation. The patient was evaluated by internal medicine and cardiology and cleared for discharge. On day of discharge patient's knee incision is healing well. There is minimal erythema. There is no drainage noted at this time. There is minimal soft tissue swelling to the knee. Patient has full foot and ankle motion without difficulty or pain. Calf is soft and nontender to palpation. Neurovascular status to the right lower extremity is intact. Patient is discharged home in good condition. Please see med rec for accurate list of home medications. Plan - Discharge Summary Discharge Rx Participant: Yes New Discharge Prescriptions: New HYDROcodone/APAP 7.5-325MG [[place] 7.5-325] 1 - 2 tab PO Q6HR PRN #32 tab PRN Reason: Pain Gabapentin [Neurontin] 300 mg PO BID 5 Days #10 cap Sennosides-Docusate Sodium [Senokot-S] 1 tab PO BID #60 tablet Metoprolol Tartrate [Lopressor] 25 mg PO BID 30 Days #30 tab Continue Apixaban [Eliquis] 5 mg PO BID Diltiazem Cd [Cardizem CD] 120 mg PO DAILY Discharge Medication List Apixaban [Eliquis] 5 mg PO BID 02/26/21 [History] Diltiazem Cd [Cardizem CD] 120 mg PO DAILY 02/26/21 [History] Gabapentin [Neurontin] 300 mg PO BID 5 Days #10 cap 03/08/21 [Rx] HYDROcodone/APAP 7.5-325MG [[place] 7.5-325] 1 - 2 tab PO Q6HR PRN #32 tab 02/18 [Rx] Sennosides-Docusate Sodium [Senokot-S] 1 tab PO BID #60 tablet 03/08/21 [Rx] Metoprolol Tartrate [Lopressor] 25 mg PO BID 30 Days #30 tab 03/09/21 [Rx] Follow up Appointment(s)/Referral(s): Kiersten Joy PAC [PHYSICIAN AIR CONDITIONING MANAGER] - 03/22/21 10:00 am Kaleb Serrano MD [STAFF PHYSICIAN] - 1 Week [facility], [NON-STAFF] - (Formerly [facility] will call you to arrange the time for your first visit. ) Sara Kauffman MD [Primary Care Provider] - 3 Days Activity/Diet/Wound Care/Special Instructions: May bear wt as tolerated with walker. May remove kaleb wrap 24 hour post op. May shower 48 hour post op. Keep Optifoam dressing intact 7-10 days. Medical to manage anticoagulation. Discharge Disposition: HOME WITH HOME HEALTH SERVICES
[2021-03-09 14:04] VITALS: BP 120/87; PULSE 98; TEMP 98.9
[2021-03-09] MEDS ORDERED: METOPROLOL TARTRATE 50 MG TAB PO SCH (21:00)
[2021-03-09] MEDS ORDERED: METOPROLOL TARTRATE 25 MG TAB PO SCH (21:00)
== END 2021-03-09 14:40 | disposition home health service (06) ==
LOC: OR 05:33 → 4SSUR 12:36 → OR 03-09 14:40
PROVIDERS: ATTEND Orthopaedic Surgery
DX: M17.11 Unilateral primary osteoarthritis, right knee (principal); I48.19 Other persistent atrial fibrillation; I10 Essential (primary) hypertension; Z79.899 Other long term (current) drug therapy; Z79.01 Long term (current) use of anticoagulants; F32.9 Major depressive disorder, single episode, unspecified; E78.5 Hyperlipidemia, unspecified; Z90.5 Acquired absence of kidney; I48.92 Unspecified atrial flutter
CPT/HCPCS: 93005 ×2; 97116; 97161; 64999; 64448; 76942; 80048; 84484; 85025; 85610; 88300; 87635; 73560; 27447; C1713; C1776; J2250; J1100; J0690 ×3; J2405; J2001; J3010; J2370; J0330; J2704; J2795

== ENCOUNTER → 2023-03-27 | Outpatient (CLI) | payer MEDICARE, OTHER ==
[2023-03-27 15:42] LABS: Basophils # (A) 0.03 X 10*3/uL (0.00-0.10); Basophils % (A) 0.7 %; Eosinophils # (A) 0.11 X 10*3/uL (0.04-0.35); Eosinophils % (A) 2.4 %; HGB 15.2 d/dL (13.0-17.0); Lymphocytes # (A) 1.05 X 10*3/uL (0.90-5.00); Lymphocytes % (A) 23.2 %; MCH 30.8 pg (27.0-32.0); MCHC 34.5 d/dL (32.0-37.0); MCV 89.1 FL (80.0-97.0); Mean Platelet Volume 9.5 FL (9.5-12.2); Monocytes # (A) 0.48 X 10*3/uL (0.20-1.00); Monocytes % (A) 10.6 %; NRBC Per 100 WBC 0 X 10*3/uL (0.00-0.01); Neutrophils # (A) 2.84 X 10*3/uL (1.80-7.70); Neutrophils % (A) 62.9 %; Platelet Count 173 X 10*3/uL (140-440); RBC 4.94 X 10*6/uL (4.40-5.60); RDW 14.1 % (11.5-14.5); WBC 4.52 X 10*3/uL (4.50-10.00)
[2023-03-27 16:11] LABS: Blood Urea Nitrogen 17.5 mg/dL (9.0-27.0); Carbon Dioxide 25.8 mmol/L (21.6-31.8); Chloride 106 mmol/L (96-109); Potassium 4.8 mmol/L (3.5-5.5); Sodium 142 mmol/L (135-145)
== END | disposition home or self-care (01) ==
LOC: LABPAT 10:27
PROVIDERS: ATTEND Internal Medicine Interventional Cardiology
DX: Z01.812 Encounter for preprocedural laboratory examination (principal); R94.39 Abnormal result of other cardiovascular function study
CPT/HCPCS: 80051; 82565; 84520; 85025

== ENCOUNTER 2023-03-29 07:37 | Day surgery (SDC) | payer MEDICARE, OTHER ==
[~2023-03-29 07:37] MED LIST changes: -ACETAMINOPHEN TAB 500 MG TAB PO PRN; +ALPRAZolam 0.25 MG TAB PO PRN; +ALPRAZolam 0.5 MG TAB PO PRN; +ASPIRIN 325 MG TAB PO ONE; -GABAPENTIN 300 MG CAP PO PRN; -MELOXICAM 7.5 MG TAB PO PRN; +NITROGLYCERIN SL TABS 0.4 MG TAB SUBLINGUAL PRN; -ONDANSETRON 4 MG/2 ML VIAL IVP PRN; -ROPIVACAINE/EPI/CLONIDINE/KET 50 ML SYRINGE MISCELLANE PRN; -TRANEXAMIC ACID 1,000 MG in SODIUM CHLORIDE 0.9% 100 ML IVPB PRN
[2023-03-29] MEDS ORDERED: ASPIRIN 325 MG TAB PO STA (07:46)
[2023-03-29] MEDS: SODIUM CHLORIDE 0.9% 1,000 ML in EMPTY BAG 1 BAG IV SCH ×2 (07:58→08:54)
[2023-03-29 08:07] VITALS: RESP 20; TEMP 97.9
[2023-03-29] MEDS ORDERED: VERAPAMIL 2.5 MG/ML 2 ML AMP ONE (09:04)
[2023-03-29] MEDS ORDERED: HEPARIN SODIUM 1,000 UN/ML (10ML VL) ONE (09:25)
[2023-03-29] MEDS ORDERED: fentaNYL (PF) 50 MCG/ML 2 ML AMP ONE (09:40)
[2023-03-29] MEDS ORDERED: MIDAZOLAM 2 MG/2 ML VIAL IVP ONE (09:40)
[2023-03-29] MEDS ORDERED: LIDOCAINE 1% INJ 10MG/ML (20 ML MDV) SQ ONE (09:41)
[2023-03-29] MEDS ORDERED: fentaNYL (PF) 50 MCG/ML 2 ML AMP IVP ONE (09:41)
[2023-03-29] MEDS ORDERED: VERAPAMIL SYRINGE (5 MG/10 ML) INTRAARTER ONE (09:42)
[2023-03-29] MEDS ORDERED: HEPARIN SODIUM 1,000 UN/ML (10ML VL) IV ONE (09:45)
[2023-03-29] MEDS ORDERED: RX INFO: IV CONTRAST WAS GIVEN 1 EACH MISC MISCELLANE PRN (09:59)
[2023-03-29] MEDS ORDERED: SODIUM CHLORIDE 0.9% 1,000 ML IV SCH (10:00)
--- NOTE | 2023-03-29 10:03 | P.PCN ---
Date of Procedure: 03/29/23 Operative Findings: CARDIAC CATHETERIZATION PERFORMING PHYSICIAN: Kaleb Serrano MD, RPVI PROCEDURE PERFORMED: 1. Selective right and left coronary angiogram 2. Left heart catheterization INDICATION: Abnormal myocardial perfusion imaging stress test in this 67-year-old gentleman who underwent a stress test before noncardiac surgery. This test that showed ischemia COMPLICATION: None APPROACH: Right radial artery LEVEL OF SEDATION: Moderate with a sedation length of 15 minutes PROCEDURE DESCRIPTION: After obtaining an informed consent, the patient was brought to cardiac director of cardiac cath lab. Local anesthesia was performed using lidocaine subcutaneously. The right radial artery was cannulated using Seldinger technique, the guidewire passed easily, following that we advanced a 5-Maltese sheath dilator assembly, the wire and dilator were removed and sheath was flushed. Following that, 2 mg of verapamil along with 5000 unit heparin were given. Selective right and left coronary angiogram using a 6-Maltese JR4 and JL 3.5 catheters. Following that we did left heart catheterization using 6-Maltese pigtail catheter. The procedure was completed there was no complication. SELECTIVE CORONARY ANGIOGRAM: The right coronary artery: Medium to large caliber vessel and dominant vessel. Its angiographically normal. Left main: It is angiographically normal. Bifurcates into an LCx and LAD The left circumflex: Large caliber vessel and a dominant vessel. Its angiographically normal. Distally bifurcates into PDA and PLV branches both appear to be angiographically normal The left anterior descending artery: Large caliber vessel and appears to be angiographically normal and gives rise into the first and second diagonal and both appeared to be angiographically normal HEMODYNAMICS: LVEDP was 12 mmHg was no significant gradient across aortic valve CONCLUSION: 1. Normal coronary angiogram 2. Normal left-sided filling pressure POSTPROCEDURE MANAGEMENT: Medical treatment
[2023-03-29 13:08] VITALS: BP 137/84; PULSE 70
== END 2023-03-29 14:06 | disposition home or self-care (01) ==
LOC: CATHCVL 07:37
PROVIDERS: ATTEND Internal Medicine Interventional Cardiology
DX: I48.21 Permanent atrial fibrillation (principal); I10 Essential (primary) hypertension; E78.5 Hyperlipidemia, unspecified; Z79.01 Long term (current) use of anticoagulants; Z79.899 Other long term (current) drug therapy
CPT/HCPCS: 93458; C1769; C1894; J2250; J2001; J3010; J1644

== ENCOUNTER 2023-04-03 10:10 | Inpatient (IN) | payer MEDICARE, OTHER ==
[2023-03-31 09:30] VITALS: BMI 25.7
[~2023-04-03 10:10] MED LIST changes: +ACETAMINOPHEN TAB 500 MG TAB PO PRN; -ALPRAZolam 0.25 MG TAB PO PRN; -ALPRAZolam 0.5 MG TAB PO PRN; -ASPIRIN 325 MG TAB PO ONE; +HYDROmorphone 0.5 MG/0.5 ML SYRINGE IVP PRN; +LIDOCAINE 1% (10MG/ML) FOR IV START INTRADERMA PRN; +MELOXICAM 7.5 MG TAB PO PRN; -NITROGLYCERIN SL TABS 0.4 MG TAB SUBLINGUAL PRN; +ONDANSETRON 4 MG/2 ML VIAL IVP PRN; +TRANEXAMIC 1,000 MG/100ML-NACL 1,000 MG in SALINE 1 100ML.BAG IVPB PRN
[2023-04-03] MEDS ORDERED: DEXAMETHASONE SOD PHOSPHATE 4 MG/ML 1 ML VIAL IVP ONE (10:56)
[2023-04-03] MEDS: LACTATED RINGERS 1,000 ML IV SCH ×2 (10:57→21:26)
[2023-04-03] MEDS ORDERED: fentaNYL (PF) 50 MCG/ML 2 ML AMP IVP ONE (12:10)
[2023-04-03] MEDS ORDERED: MIDAZOLAM HCL 10 MG/10 ML VIAL IVP ONE (12:10)
[2023-04-03] MEDS ORDERED: SUCCINYLCHOLINE CHLORIDE 200 MG/10 ML VIAL IV ONE (12:25)
[2023-04-03] MEDS ORDERED: NEOSTIGMINE 1 MG/ML 10 ML VIAL ONE (12:25)
[2023-04-03] MEDS ORDERED: ROPIVACAINE 5 MG/ML 30 ML VIAL ONE (12:25)
[2023-04-03] MEDS ORDERED: SODIUM CHLORIDE 0.9% (PF) 10 ML VIAL ONE (12:25)
[2023-04-03] MEDS ORDERED: MIDAZOLAM 2 MG/2 ML VIAL ONE (12:25)
[2023-04-03] MEDS ORDERED: ePHEDrine 50 MG/ML 1 ML VIAL ONE (12:25)
[2023-04-03] MEDS ORDERED: fentaNYL (PF) 50 MCG/ML 2 ML AMP ONE (12:25)
[2023-04-03] MEDS ORDERED: GLYCOPYRROLATE 0.2 MG/ML 2 ML VIAL ONE (12:25)
[2023-04-03] MEDS ORDERED: TRANEXAMIC 1,000 MG/100ML-NACL PREMIX BAG ONE (12:25)
[2023-04-03] MEDS ORDERED: PROPOFOL 10 MG/ML 20 ML VIAL IV ONE (12:25)
[2023-04-03] MEDS ORDERED: HYDROmorphone (PF) 1 MG/ML ONE (12:25)
[2023-04-03] MEDS ORDERED: LIDOCAINE 1% INJ 10MG/ML (20 ML MDV) ONE (12:25)
[2023-04-03] MEDS ORDERED: ROCURONIUM 10 MG/ML (5 ML VIAL) IV ONE (12:25)
[2023-04-03] MEDS ORDERED: ceFAZolin 1,000 MG in SODIUM CHLORIDE 0.9% 1,000 ML IRRIGATION ONE (12:30)
--- NOTE | 2023-04-03 13:08 | P.ANPRN ---
Procedure Note - Anesthesia - Nerve Block Performed Left Adductor Canal Infusion Time Out Performed: Yes (1209) Date of Procedure: 04/03/23 Procedure Start Time: 12:10 Procedure Stop Time: 12:15 Location of Patient: PreOp Indication: Acute Post-Operative Pain, Requested by Surgeon Specifically requested for management of pain by DrRosalino: Vikas Bolden Sedation Type: Sedate with meaningful contact maintained Preparation: Sterile Prep Position: Supine Catheter Depth at Skin (cm): 7 Catheter: Indwelling Needle Types: Pajunk Needle Gauge: 18 Ultrasound used to visualize needle placement: Yes Ultrasound used to observe medication spread: Yes Injectate: 0.5% Ropivacaine (see comment for volume) (15cc + 5cc nacl pf) Blood Aspirated: No Pain Paresthesia on Injection Noted: No Resistance on Injection: Normal Image Stored and Saved: Yes Events: Uneventful and Well Tolerated
--- NOTE | 2023-04-03 13:09 | P.ANPRN ---
Procedure Note - Anesthesia - Nerve Block Performed Left iPack Single Time Out Performed: Yes (1209) Date of Procedure: 04/03/23 Procedure Start Time: :16 Procedure Stop Time: 12:18 Location of Patient: PreOp Indication: Acute Post-Operative Pain, Requested by Surgeon Specifically requested for management of pain by DrRosalino: Vikas Bolden Sedation Type: Sedate with meaningful contact maintained Preparation: Sterile Prep Position: Supine Catheter: None Needle Types: Pajunk Needle Gauge: 21 Ultrasound used to visualize needle placement: Yes Ultrasound used to observe medication spread: Yes Injectate: 0.5% Ropivacaine (see comment for volume) (15cc + 5cc nacl pf) Blood Aspirated: No Pain Paresthesia on Injection Noted: No Resistance on Injection: Normal Image Stored and Saved: Yes Events: Uneventful and Well Tolerated
[2023-04-03] MEDS ORDERED: LACTATED RINGERS 1,000 ML IV ONE ×3 (13:53)
--- NOTE | 2023-04-03 14:03 | P.OP ---
Date of Procedure: 04/03/23 Procedure(s) Performed: PREOPERATIVE DIAGNOSIS: Left knee severe osteoarthritis with genu varum POSTOPERATIVE DIAGNOSIS: Left knee severe osteoarthritis with genu varum OPERATION: Left knee cemented total replacement arthroplasty. ANESTHESIA: General and regional IPAC and ACB for postoperative pain management ESTIMATED BLOOD LOSS: 100 ml. MARKETING STRATEGY ANALYST: Kiersten Joy PA-C (assistance with: patient positioning, retraction, exposure, hemostasis, leg positioning, implantation, irrigation, closure, dressing) COMPLICATIONS: None apparent. COMPONENTS IMPLANTED: Persona system from [employer] INDICATIONS: Grady is a 67-year-old male with a history of left knee osteoarthritis, flexion contracture of approximately 15, and genu varum. Conservative treatment has been tried and has been unsuccessful in controlling symptoms adequately. The operation of knee replacement has been discussed at length in the office, as well as potential risks and complications. These are inclusive of, but not limited to: bleeding, infection, scarring, discomfort, blood vessel and nerve damage, need for further surgery, failure to relieve symptoms, persistence, recurrence, or worsening of problems, loosening, dislocation, wear, blood clot, pulmonary embolism, , gait dysfunction, stiffness, and other risks as discussed in the office. The patient elects to proceed and the consent form has been signed. PROCEDURE: The patient was taken to the operating room and positioned on the operating room table in the supine position. Anesthesia was initiated. Care was taken to make sure that all pressure points were adequately padded. The operative lower extremity was prepped and draped in the usual aseptic fashion using ChloraPrep. Ioban drape was used for the case and the patient received intravenous antibiotics within one hour of the incision. A pneumotourniquet and leg sahu were used for the case. The limb was exsanguinated with an Esmarch bandage and the tourniquet was inflated to 275 mmHg. Time-out was called confirming the patient's identity, side, procedure and administration of antibiotics and tranexamic acid, 1 g IV. The incision was then created midline directly over the knee, carried down through skin and into the subcutaneous tissues and down to fascia. Full thickness subcutaneous medial flap was developed. Medial parapatellar arthrotomy was performed and the interior of the knee was inspected. There was end-stage osteoarthritis of the knee with a mild to moderate genu varum type deformity. The fat pad was excised and proximal medial release on the tibia was completed using meticulous dissection and a curved osteotome. The anterior cruciate ligament was taken down. Note was made of significant attrition of the anterior and significant degenerative appearance of the posterior cruciate ligaments. The exposure was excellent. The knee was flexed 90 degrees and the patella was everted. A spot was chosen on the femur approximately 1 cm anterior to the posterior cruciate ligament insertion and an intramedullary hole was created within the femur. The intramedullary guide was then set to 5 degrees of valgus. The distal cutting block was attached and pinned into position. An appropriate amount of distal femoral resection was set. The oscillating saw was then used to make the distal femoral cut. This cut was confirmed to be flat with the flat end of an osteotome. The retractors were placed around the tibia and the tibial surface was addressed. The angle and depth of resection was adjusted using an extramedullary cutting guide. The guide had a built-in 3 degree posterior slope cut. Once the cutting guide was adjusted appropriately and in line with the axis of the tibia and confirmed to be in good position in relation to the second metatarsal and transmalleolar axis, the tibial cut was then created with protection of the posterior neurovascular structures and the collateral ligaments. The tibial cut surface was removed and sized. Femoral sizing was then accomplished using anterior referencing. Care was taken to analyze the posterior condyles for signs of deficiency or severe wear, and adjustments to the guide were made, as appropriate. 3 degree external rotation pins were placed. The cutting jig for the femur was applied to these pins. The planned cuts were further analyzed prior to performing them with the oscillating saw. No femoral notching was produced. Bone fragments were removed and the cut surfaces were finished, as necessary, with a reciprocating saw. Spacer block technique was then used to confirm that the flexion and extension gaps were equal. Soft tissue releases and adjustment of the tibial and/or femoral cuts were made, as necessary, until the gaps were equal. This included release of the posterior cruciate ligament, which was tight in this patient. The femur was then further finished for a posterior cruciate ligament substituting component. Patellar resurfacing was performed using a reamer. The size of the required patellar component was estimated and the patellar surface was then reamed down to a residual thickness which would recreate the [place] thickness with the component. The exact placement of the patellar component was adjusted for position based on preoperative x-rays and intraoperative findings. The trial components were inserted. The tibial tray was allowed to self center and the patella was noted to track very well. The position of the tibial component was marked and the tibia was then finished for a stemmed tibial component. Cement was mixed on the back table and applied to the final components. Trial components were removed and the cut surfaces of the bone were pulse lavaged thoroughly and dried. Cement was then applied to the tibial surface and pressurized into the surface using finger pressurization technique. The tibial component was then applied and excess cement was removed after it was impacted securely and noted to be flush with the cut surface. In similar fashion, the cement was applied to the cut femoral surface, pressurized in using finger pressurization and the component was impacted into place. Excess cement was removed. The polyethylene spacer was then implanted and locked into position. The patellar component was then applied in similar technique and a patellar clamp was used to hold the patella in place as the cement hardened. Once the cement had fully hardened, the knee was reinspected. Any other cement extrusion was removed and final kinematic testing showed range of motion from 0 to 130 degrees with excellent stability, both medially and laterally and appropriate alignment of the leg. Patellar tracking was excellent. The knee was then thoroughly pulse lavaged with normal saline. The tourniquet was deflated and hemostasis was obtained with electrocautery and IV tranexamic acid, 1 g given prior to inflation of the tourniquet and another gram given at the time of closure. Closure was with #2 Ethibond in the fascia and supplemented with #2 Quill, 2-0 Vicryl suture was used for the subcutaneous tissues and 3-0 Quill for the skin. Dermabond/Steri-Strips were then applied. A lightly compressive dressing was applied using Webril and an Cesar wrap. The patient was then transferred to [facility] and taken to the recovery room in st able condition. Sponge and needle counts were correct.
[2023-04-03] MEDS ORDERED: HYDROcodone/APAP 5-325MG 1 EACH TAB PO PRN (14:37)
[2023-04-03] MEDS ORDERED: bisacodyL 10 MG SUPP RECTAL PRN (14:37)
[2023-04-03] MEDS ORDERED: TEMAZEPAM 15 MG CAP PO PRN (14:37)
[2023-04-03] MEDS ORDERED: ONDANSETRON 4 MG/2 ML VIAL IVP PRN (14:37)
[2023-04-03] MEDS ORDERED: NALOXONE 0.4 MG/ML 1 ML VIAL IV PRN (14:37)
[2023-04-03] MEDS ORDERED: HYDROmorphone 0.5 MG/0.5 ML SYRINGE IVP PRN ×3 (14:37)
[2023-04-03] MEDS ORDERED: NA PHOS,M-B/NA PHOS,DI-BA 133 ML ENEMA RECTAL PRN (14:37)
[2023-04-03] MEDS ORDERED: MAGNESIUM HYDROXIDE 2,400 MG/30 ML CUP PO PRN (14:37)
[2023-04-03] MEDS ORDERED: ROPIVACAINE 0.2%-NS ON-Q PUMP 2 MG/ML EACH MISCELLANE PRN (14:48)
--- NOTE | 2023-04-03 15:07 | XR ---
EXAMINATION TYPE: XR knee limited LT DATE OF EXAM: 04/03/2023 COMPARISON: 04/18/2013 HISTORY: Postop abnormality and alignment TECHNIQUE: AP and lateral left knee FINDINGS: Tibiofemoral components in place. No acute fractures or dislocations evident. Postsurgical soft tissue changes are present. IMPRESSION: 1. No acute fractures post left knee replacement
[2023-04-03] MEDS: SENNOSIDES-DOCUSATE SODIUM 1 EACH TAB PO SCH (21:26)
[2023-04-04] MEDS: LACTATED RINGERS 1,000 ML IV SCH ×4 (01:06→22:41)
[2023-04-04] MEDS: APIXABAN 5 MG TAB PO SCH ×2 (05:12→17:40)
--- NOTE | 2023-04-04 08:01 | P.PN ---
Progress Note - Text Progress Note Date: 04/04/23 Patient seen at 655 am sitting in bed. POD #1 Left TKA with adductor canal catheter insitu for post-op pain management. Patient denies any pain in knee reporting a VAS 0/10 Complains of mild discomfort in the medial thigh area reporting a VAS of 2-3/10. He has called nurse for oral analgesics. Otherwise without complaint. Ambulating without difficulty with walker. Satisfied with anesthesia care as well as perineural catheter for post-operative pain management. Patient to be discharged to home today. Will follow up as indicated.
[2023-04-04] MEDS: HYDROcodone/APAP 5-325MG 1 EACH TAB PO PRN ×3 (08:18→21:01)
--- NOTE | 2023-04-04 08:39 | P.PN ---
Progress Note - Text Progress Note Date: 04/04/23 The patient is doing well status post total knee replacement. Pain is well con trolled by a combination of local anesthetic infusion through the adductor canal catheter and oral analgesics. There are no signs of infection around the catheter skin entry site. The patient denies any pain around his left knee however he does have some pain in the left groin area as he states. The local anesthetic infusion will be continued as per protocol. The patient will be discharged home today.
--- NOTE | 2023-04-04 10:50 | P.CONS ---
History of Present Illness - Reason for Consult Atrial fibrillation - History of Present Illness Patient is admitted for elective left knee arthroplasty patient has some swelling and pain because of which she is not being discharged today patient does have history of proximal A. fib presently rate controlled. Patient denied any fever chills nausea vomiting abdominal pain. Patient is on anticoagulation which was resumed postsurgery here. REVIEW OF SYSTEMS: CONSTITUTIONAL: No fever, no malaise, no fatigue. HEENT: No recent visual problems or hearing problems. Denied any sore throat. CARDIOVASCULAR: No chest pain, orthopnea, PND, no palpitations, no syncope. PULMONARY: No shortness of breath, no cough, no hemoptysis. GASTROINTESTINAL: No diarrhea, no nausea, no vomiting, no abdominal pain. NEUROLOGICAL: No headaches, no weakness, no numbness. HEMATOLOGICAL: Denies any bleeding or petechiae. GENITOURINARY: Denies any burning micturition, frequency, or urgency. MUSCULOSKELETAL/RHEUMATOLOGICAL: Denies any joint pain, swelling, or any muscle pain. ENDOCRINE: Denies any polyuria or polydipsia. The rest of the 14-point review of systems is negative. PHYSICAL EXAMINATION: GENERAL: The patient is alert and oriented x3, not in any acute distress. Well developed, well nourished. HEENT: Pupils are round and equally reacting to light. EOMI. No scleral icterus. No conjunctival pallor. Normocephalic, atraumatic. No pharyngeal erythema. No thyromegaly. CARDIOVASCULAR: S1 and S2 present. No murmurs, rubs, or gallops. PULMONARY: Chest is clear to auscultation, no wheezing or crackles. ABDOMEN: Soft, nontender, nondistended, normoactive bowel sounds. No palpable organomegaly. MUSCULOSKELETAL: No joint swelling or deformity. EXTREMITIES: No cyanosis, clubbing, or pedal edema. NEUROLOGICAL: Gross neurological examination did not reveal any focal deficits. SKIN: No rashes. Assessment and plan -Proximal atrial fibrillation presently sinus rhythm patient will be resumed on her home medications along with anticoagulation -Osteoarthritis primarily for which patient underwent left knee arthroplasty management of postoperative as per primary service -Hyperlipidemia resume on atorvastatin will DVT prophylaxis: On anticoagulation Past Medical History Past Medical History: Atrial Fibrillation, Hyperlipidemia, Hypertension, Osteoarthritis (OA), Renal Disease Additional Past Medical History / Comment(s): hx renal failure-RESOLVED SINCE 2012 History of Any Multi-Drug Resistant Organisms: None Reported Past Surgical History: Joint Replacement Additional Past Surgical History / Comment(s): rt nepthrectomy. CARDIOVERSION- 03/29/23. COLONOSCOPY. RT TKA Past Anesthesia/Blood Transfusion Reactions: No Reported Reaction Past Psychological History: No Psychological Hx Reported Smoking Status: Never smoker Past Alcohol Use History: Occasional Past Drug Use History: None Reported - Past Family History Father Family Medical History: Cancer Medications and Allergies Home Medications Medication Instructions Recorded Confirmed Type Apixaban [Eliquis] 5 mg PO BID 02/26/21 03/31/23 History Atorvastatin [Lipitor] 20 mg PO DAILY 03/29/23 04/03/23 History HYDROcodone/APAP 7.5-325MG [[place] 1 - 2 tab PO Q6HR PRN #32 tab 04/03/23 Rx 7.5-325] Ondansetron Odt [Zofran Odt] 4 mg PO Q8HR PRN #14 tab 04/03/23 Rx Sennosides-Docusate Sodium 1 tab PO BID #60 tablet 04/03/23 Rx [Senokot-S] Allergies Allergy/AdvReac Type Severity Reaction Status Date / Time No Known Allergies Allergy Verified 04/03/23 10:37 Physical Exam Vitals: Vital Signs Temp Pulse Resp BP Pulse Ox 04/04/23 07:17 98.8 F 70 20 138/90 98 04/04/23 01:00 97.8 F 101 H 18 140/86 97 04/03/23 19:30 97.5 F L 129 H 18 142/84 97 04/03/23 18:49 98.0 F 64 16 149/89 97 04/03/23 16:33 53 L 16 138/67 97 04/03/23 15:47 54 L 16 135/71 99 04/03/23 15:29 53 L 16 131/72 98 04/03/23 15:14 85 16 131/72 98 04/03/23 14:59 60 16 128/81 93 L 04/03/23 14:44 55 L 16 123/72 98 04/03/23 14:29 98.2 F 59 L 16 129/76 98 04/03/23 12:25 55 L 16 132/83 98 Intake and Output 04/03/23 04/04/23 04/04/23 22:59 06:59 14:59 Output Total 275 Balance -275 Output: Urine 275 Other: Voiding Method Toilet # Voids 0 1 Weight 83.9 kg
[2023-04-04 11:04] LABS: Basophils # (A) 0.01 X 10*3/uL (0.00-0.10); Basophils % (A) 0.1 %; Eosinophils # (A) 0.01 X 10*3/uL (0.04-0.35); Eosinophils % (A) 0.1 %; HCT 41.4 % (39.6-50.0); HGB 14.4 d/dL (13.0-17.0); Lymphocytes # (A) 1.15 X 10*3/uL (0.90-5.00); Lymphocytes % (A) 10.5 %; MCH 30.3 pg (27.0-32.0); MCHC 34.8 d/dL (32.0-37.0); Mean Platelet Volume 9.9 FL (9.5-12.2); Monocytes # (A) 1.07 X 10*3/uL (0.20-1.00); Monocytes % (A) 9.8 %; NRBC Per 100 WBC 0 X 10*3/uL (0.00-0.01); Neutrophils # (A) 8.66 X 10*3/uL (1.80-7.70); Neutrophils % (A) 79.1 %; Platelet Count 195 X 10*3/uL (140-440); RBC 4.76 X 10*6/uL (4.40-5.60); RDW 13.8 % (11.5-14.5); WBC 10.94 X 10*3/uL (4.50-10.00)
--- NOTE | 2023-04-04 11:17 | P.PN ---
Subjective Progress Note Date: 04/04/23 This is a 67-year-old male who is status post left total knee arthroplasty. This is postoperative day #1 and patient is seen and evaluated at bedside today. Patient states that he has soreness in the left thigh and had difficulty working with physical therapy today. Objective - Vital Signs Vital signs: Vital Signs Temp 98.8 F 04/04/23 07:17 Pulse 70 04/04/23 07:17 Resp 20 04/04/23 07:17 BP 138/90 04/04/23 07:17 Pulse Ox 98 04/04/23 07:17 FiO2 Intake & Output 04/03/23 04/04/23 04/04/23 18:59 06:59 18:59 Intake Total 1351 Output Total 100 275 Balance 1251 -275 Weight 83.9 kg Intake: IV 1351 Output: Urine 275 Estimated Blood Loss 100 Other: Voiding Method Toilet # Voids 0 1 - Exam Vital signs are stable. Patient is in no acute distress and is alert and oriented 3. Calf is soft and nontender to palpation. Patient is able to actively flex and extend the left knee with some limitation secondary to swelling and pain. Dressing is clean, dry, and intact. Patient has full foot and ankle motion without pain or difficulty. Sensation intact. Neurovascular status and circulatory status are intact. - Labs CBC & Chem 7: 04/04/23 05:08 Labs: Abnormal Lab Results - Last 24 Hours (Table) 04/04/23 Range/Units 05:08 WBC 10.94 H (4.50-10.00) X 10*3/uL Neutrophils # 8.66 H (1.80-7.70) X 10*3/uL Monocytes # 1.07 H (0.20-1.00) X 10*3/uL Eosinophils # 0.01 L (0.04-0.35) X 10*3/uL Assessment and Plan (1) Osteoarthritis of left knee Current Visit: Yes Status: Acute Code(s): M17.12 - UNILATERAL PRIMARY OSTEOARTHRITIS, LEFT KNEE SNOMED Code(s): 400012843840924 (2) Status post total left knee replacement Current Visit: Yes Status: Acute Code(s): Z96.652 - PRESENCE OF LEFT ARTIFICIAL KNEE JOINT SNOMED Code(s): 9042570359630 Plan: #1 Continue with routine postoperative care and pain control, leave dressing in place for 7 days. #2 Anticoagulation with Eliquis. #3 Physical therapy today. #4 Appreciate input from internal medicine. #5 Anticipate discharge home with home care to [facility] in the next 24-48 hours.
[2023-04-04] MEDS: hydrOXYzine pamoate 25 MG CAP PO PRN ×2 (15:46→21:02)
[2023-04-04] MEDS: SENNOSIDES-DOCUSATE SODIUM 1 EACH TAB PO SCH (22:12)
[2023-04-05] MEDS: APIXABAN 5 MG TAB PO SCH ×2 (05:45→17:18)
[2023-04-05] MEDS: hydrOXYzine pamoate 25 MG CAP PO PRN ×2 (05:45→17:18)
[2023-04-05] MEDS: HYDROcodone/APAP 5-325MG 1 EACH TAB PO PRN ×2 (05:45→17:19)
[2023-04-05] MEDS: LACTATED RINGERS 1,000 ML IV SCH ×3 (06:45→18:09)
[2023-04-05 08:33] VITALS: RESP 18
--- NOTE | 2023-04-05 10:58 | P.PN ---
Subjective Progress Note Date: 04/05/23 Principal diagnosis: Status post total left knee arthroplasty. Primary degenerative arthritis left knee. This is a 67-year-old male who is postop day #2 status post total knee arth roplasty. He is stable from an orthopedic standpoint. He is having difficulty with independent ambulation. He has been recommended by physical therapy and nursing staff that he go to inpatient rehab. The patient currently is refusing inpatient rehab. He is concerned about his cats at home. PT states that he is unable to ambulate very well and is unable to do stairs. He is not independent in activities. He is afebrile. Vital signs are stable. Objective - Vital Signs Vital signs: Vital Signs Temp 98.1 F 04/05/23 06:43 Pulse 137 H 04/05/23 06:43 Resp 18 04/05/23 06:43 BP 119/81 04/05/23 06:43 Pulse Ox 96 04/05/23 06:43 FiO2 Intake & Output 04/04/23 04/05/23 04/05/23 18:59 06:59 18:59 Output Total 2074 Balance -2074 Output: Urine 2074 Other: # Voids 2 - Exam This is a pleasant 67-year-old male in no acute distress. He is alert and oriented 3. He is sitting in bed with his knee flexed to 90. His left knee dressing is clean, dry and intact. He is unable to fully extend the knee. I can get him to about -15 of full extension he has flexion past 90. He has full foot and ankle motion without difficulty or pain. Neurovascular status to the lower extremity is intact. - Labs CBC & Chem 7: 04/04/23 05:08 Labs: Abnormal Lab Results - Last 24 Hours (Table) 04/04/23 Range/Units 05:08 WBC 10.94 H (4.50-10.00) X 10*3/uL Neutrophils # 8.66 H (1.80-7.70) X 10*3/uL Monocytes # 1.07 H (0.20-1.00) X 10*3/uL Eosinophils # 0.01 L (0.04-0.35) X 10*3/uL Assessment and Plan (1) Osteoarthritis of left knee Current Visit: Yes Status: Acute Code(s): M17.12 - UNILATERAL PRIMARY OSTEOARTHRITIS, LEFT KNEE SNOMED Code(s): 483625003659393 (2) Status post total left knee replacement Current Visit: Yes Status: Acute Code(s): Z96.652 - PRESENCE OF LEFT ARTIFICIAL KNEE JOINT SNOMED Code(s): 9852000464336 Plan: The clinical findings are discussed with the patient. We had a long discussion regarding his safety and recommendations that he go to inpatient rehab. The patient continues to refuse inpatient rehab. I have convinced him stately sophomore night to have therapy work with him again this afternoon. He is instructed on the activities that he will need to accomplish nurse to be able to be discharged home safely. We will reevaluate tomorrow. In the meantime he has been switched to inpatient to that he may potentially go to rehab in a couple of days.
--- NOTE | 2023-04-05 14:35 | P.PN ---
Subjective Progress Note Date: 04/05/23 - Reason for Consult Atrial fibrillation - History of Present Illness Patient is admitted for elective left knee arthroplasty patient has some swelling and pain because of which she is not being discharged today patient does have history of proximal A. fib presently rate controlled. Patient denied any fever chills nausea vomiting abdominal pain. Patient is on anticoagulation which was resumed postsurgery here. 04/05/2023 Patient is seen and evaluated in follow-up status post left knee arthroplasty. Patient working with physical therapy did not do very well recommend monitoring overnight with increased activity as tolerated and will be reevaluated by physical therapy with possible ECF being planned. Patient is adamant he is returning home. Patient reports his pain is currently controlled on current regimen. Patient heart rate noted to be in the 130s with history of A. fib EKG was obtained showing a flutter and will initiate metoprolol and continue telemetry monitoring and monitor overnight. Patient is afebrile with no reported chest pain or shortness of breath. Patient is anticoagulated. No reported nausea or vomiting and tolerating diet. Patient reports is voiding with no difficulty, passing flatus with no bowel movement as of yet Review of systems: Constitutional: No reports of fatigue, fever, or chills Cardiovascular: No reports of chest pain or palpitations Respiratory: No reports of shortness of breath or cough GI: No reports of nausea, vomiting, or diarrhea : No reports of dysuria or retention Neurovascular: reports of generalized weakness All medications have been reviewed PHYSICAL EXAMINATION: GENERAL: The patient is alert and oriented x3, not in any acute distress. Well developed, well nourished. HEENT: Pupils are round and equally reacting to light. EOMI. No scleral icterus. No conjunctival pallor. Normocephalic, atraumatic. No pharyngeal erythema. No thyromegaly. CARDIOVASCULAR: S1 and S2 present. Irregular PULMONARY: Chest is clear to auscultation, no wheezing or crackles. ABDOMEN: Soft, nontender, nondistended, normoactive bowel sounds. No palpable organomegaly. MUSCULOSKELETAL: No joint swelling or deformity. EXTREMITIES: No cyanosis, clubbing, or pedal edema. Left knee dressing is dry and intact with no significant swelling or erythema noted NEUROLOGICAL: Gross neurological examination did not reveal any focal deficits. Diffusely weak SKIN: No rashes. Assessment: -History of paroxysmal atrial fibrillation not on any rate control medications, is anticoagulated -Osteoarthritis primarily for which patient underwent left knee arthroplasty postop day 1 -Hyperlipidemia -GI prophylaxis -DVT prophylaxis: On anticoagulation -Full code Plan: Patient is continued on pain regimen per orthopedics and reporting pain is controlled. Patient does have pain pump of the left knee Patient is on anticoagulation with history of A. fib. EKG showing a flutter and heart rates have been in the 130s and 140s. Will initiate metoprolol and monitor continue telemetry monitoring Patient was seen and evaluated with physical therapy and did not do very well and will be reevaluated tomorrow. Patient is adamant he is going home and has plenty of help at home We will continue to follow with orthopedics during hospitalization Thank you currently for this consultation The impression and plan of care has been dictated by Lissa Yao, Nurse Practitioner as directed. Dr. Toro MD I have performed a history and examination and MDM of this patient, discussed the same with the dictator, and agree with the dictator's assessment and plan as written ,documented as a scribe. Based on total visit time, I have performed more than 50% of the visit. Objective - Vital Signs Vital signs: Vital Signs Temp 98.1 F 04/05/23 06:43 Pulse 137 H 04/05/23 06:43 Resp 18 04/05/23 06:43 BP 119/81 04/05/23 06:43 Pulse Ox 96 04/05/23 06:43 FiO2 Intake & Output 04/04/23 04/05/23 04/05/23 18:59 06:59 18:59 Output Total 2074 Balance -2074 Output: Urine 2074 Other: # Voids 2 - Labs CBC & Chem 7: 04/04/23 05:08 Labs: Abnormal Lab Results - Last 24 Hours (Table) 04/04/23 Range/Units 05:08 WBC 10.94 H (4.50-10.00) X 10*3/uL Neutrophils # 8.66 H (1.80-7.70) X 10*3/uL Monocytes # 1.07 H (0.20-1.00) X 10*3/uL Eosinophils # 0.01 L (0.04-0.35) X 10*3/uL
[2023-04-05] MEDS: METOPROLOL TARTRATE 25 MG TAB PO SCH ×2 (14:47→20:13)
[2023-04-05] MEDS ORDERED: METOPROLOL SUCCINATE (ER) 50 MG TAB.ER.24H PO STA (17:47)
[2023-04-05] MEDS ORDERED: SODIUM CHLORIDE 0.9% 1,000 ML IV SCH (18:00)
[2023-04-05 18:14] LABS: Basophils % (A) 0 %; Eosinophils % (A) 0 %; HCT 39.7 % (39.0-53.0); HGB 13.7 gm/dL (13.0-17.5); Lymphocytes # (A) 0.6 k/uL (1.0-4.8); Lymphocytes % (A) 5 %; MCH 31.1 pg (25.0-35.0); MCHC 34.6 g/dL (31.0-37.0); MCV 89.9 fL (80.0-100.0); Mean Platelet Volume 8.1; Monocytes # (A) 0.6 k/uL (0-1.0); Monocytes % (A) 5 %; Neutrophils # (A) 10.4 k/uL (1.3-7.7); Neutrophils % (A) 88 %; Platelet Count 191 k/uL (150-450); RBC 4.42 m/uL (4.30-5.90); WBC 11.8 k/uL (3.8-10.6)
[2023-04-05 19:23] LABS: African American GFR (CKD) >90 (>60 ml/min/1.73 sqM); Anion Gap 10 mmol/L; Blood Urea Nitrogen 22 mg/dL (9-20); Calcium 8.3 mg/dL (8.4-10.2); Carbon Dioxide 22 mmol/L (22-30); Chloride 100 mmol/L (98-107); Glucose 190 mg/dL (74-99); Magnesium 1.8 mg/dL (1.6-2.3); Non-African American GFR(CKD) 79 (>60 ml/min/1.73 sqM); Sodium 132 mmol/L (137-145)
[2023-04-05] MEDS: SENNOSIDES-DOCUSATE SODIUM 1 EACH TAB PO SCH (20:13)
[2023-04-05] MEDS ORDERED: MAGNESIUM SULFATE-D5W PMX 1 GM in DEXTROSE/WATER 1 100ML.BAG IVPB ONE (22:32)
[2023-04-05] MEDS ORDERED: Magnesium Replacement Protocol 1 EACH MISC MISCELLANE PRN (22:32)
[2023-04-06 06:07] LABS: Basophils % (A) 0 %; Eosinophils % (A) 0 %; HCT 38.1 % (39.0-53.0); HGB 13.2 gm/dL (13.0-17.5); Lymphocytes # (A) 0.7 k/uL (1.0-4.8); Lymphocytes % (A) 7 %; MCHC 34.6 g/dL (31.0-37.0); MCV 89.7 fL (80.0-100.0); Mean Platelet Volume 7.7; Monocytes # (A) 0.6 k/uL (0-1.0); Monocytes % (A) 6 %; Neutrophils # (A) 8.5 k/uL (1.3-7.7); Neutrophils % (A) 84 %; Platelet Count 178 k/uL (150-450); RBC 4.25 m/uL (4.30-5.90); RDW 13.8 % (11.5-15.5)
[2023-04-06] MEDS: APIXABAN 5 MG TAB PO SCH (06:11)
[2023-04-06] MEDS ORDERED: PANTOPRAZOLE 40 MG TABLET PO SCH (07:30)
[2023-04-06] MEDS: METOPROLOL TARTRATE 25 MG TAB PO SCH (07:43)
[2023-04-06 08:20] LABS: African American GFR (CKD) >90 (>60 ml/min/1.73 sqM); Anion Gap 11 mmol/L; Blood Urea Nitrogen 21 mg/dL (9-20); Calcium 8.2 mg/dL (8.4-10.2); Carbon Dioxide 20 mmol/L (22-30); Chloride 105 mmol/L (98-107); Glucose 116 mg/dL (74-99); Magnesium 2.1 mg/dL (1.6-2.3); Non-African American GFR(CKD) 82 (>60 ml/min/1.73 sqM); Potassium 3.8 mmol/L (3.5-5.1); Sodium 136 mmol/L (137-145)
--- NOTE | 2023-04-06 09:58 | P.DS ---
Providers Date of admission: 04/05/23 10:27 Expected date of discharge: 04/06/23 Attending physician: Vikas Bolden Consults: 04/03/23 14:37 Consult Physician Routine Consulting Provider: Juan J Sanchez Consult Reason/Comments: Medical Management Do you want consulting provider notified?: Yes Primary care physician: Sara Kauffman - Discharge Diagnosis(es) (1) Osteoarthritis of left knee Current Visit: Yes Status: Acute (2) Status post total left knee replacement Current Visit: Yes Status: Acute Hospital Course: This is a 67-year-old male who was last seen with complaint of continued left knee pain. The patient has a known history of degenerative arthritis of the left knee and presents to discuss surgical options. After discussion and consideration the patient elects to proceed with total left knee arthroplasty. The patient is seen preoperatively by his primary care physician and cleared for surgery. The patient is admitted to [facility] for total left knee arthroplasty. The procedures performed without complication or sequelae. He has difficulty with independent ambulation postoperatively. It was recommended by physical therapy that he go to inpatient rehab. The patient has refused inpatient rehab. On postoperative day 3 he stated that he has spoken to 2 different judges stating that we are holding him against as well. I did explain to the patient that he is able to leave the hospital at any time and that we were recommending he stay for his own safety. He did do better with physical therapy today. I am discharging him home today but there are still some concerns about his safety. He states that he has friends that will be staying with him and does have home care coming out. Vital signs are stable at discharge. Labs are stable at discharge. the patient is ambulating well with walker with minimal assistance. The patient is discharged to home on postop day #3 pending medical clearance. Please see orders and refer to the med rec for accurate list of medications. Patient Condition at Discharge: Good Plan - Discharge Summary Discharge Rx Participant: No New Discharge Prescriptions: New HYDROcodone/APAP 7.5-325MG [[place] 7.5-325] 1 - 2 tab PO Q6HR PRN #32 tab PRN Reason: Pain Sennosides-Docusate Sodium [Senokot-S] 1 tab PO BID #60 tablet Ondansetron Odt [Zofran Odt] 4 mg PO Q8HR PRN #14 tab PRN Reason: Nausea Continue Apixaban [Eliquis] 5 mg PO BID Atorvastatin [Lipitor] 20 mg PO DAILY Discharge Medication List Apixaban [Eliquis] 5 mg PO BID 02/26/21 [History] Atorvastatin [Lipitor] 20 mg PO DAILY 03/29/23 [History] HYDROcodone/APAP 7.5-325MG [[place] 7.5-325] 1 - 2 tab PO Q6HR PRN #32 tab 04/03/23 [Rx] Ondansetron Odt [Zofran Odt] 4 mg PO Q8HR PRN #14 tab 04/03/23 [Rx] Sennosides-Docusate Sodium [Senokot-S] 1 tab PO BID #60 tablet 04/03/23 [Rx] Follow up Appointment(s)/Referral(s): Kiersten Joy PAC [PHYSICIAN PUBLIC HEALTH SERVICE OFFICER] - 04/14/23 9:30 am [facility] Visiting Nurse, [NON-STAFF] - 1-2 Days ([facility] nurse will call within 24 hours of discharge to arrange visits. ) Activity/Diet/Wound Care/Special Instructions: May bear wt as tolerated w walker. May remove Cesar and Stocking and may shower 72h post op. Remove Optifoam dressing 7 days post op. Discharge Disposition: HOME WITH HOME HEALTH SERVICES
[2023-04-06 10:35] VITALS: BP 147/92; PULSE 124; TEMP 98.9
--- NOTE | 2023-04-07 06:38 | P.PN ---
Subjective Progress Note Date: 04/06/23 - Reason for Consult Atrial fibrillation - History of Present Illness Patient is admitted for elective left knee arthroplasty patient has some swelling and pain because of which she is not being discharged today patient does have history of proximal A. fib presently rate controlled. Patient denied any fever chills nausea vomiting abdominal pain. Patient is on anticoagulation which was resumed postsurgery here. 04/05/2023 Patient is seen and evaluated in follow-up status post left knee arthroplasty. Patient working with physical therapy did not do very well recommend monitoring overnight with increased activity as tolerated and will be reevaluated by physical therapy with possible ECF being planned. Patient is adamant he is returning home. Patient reports his pain is currently controlled on current regimen. Patient heart rate noted to be in the 130s with history of A. fib EKG was obtained showing a flutter and will initiate metoprolol and continue telemetry monitoring and monitor overnight. Patient is afebrile with no reported chest pain or shortness of breath. Patient is anticoagulated. No reported nausea or vomiting and tolerating diet. Patient reports is voiding with no difficulty, passing flatus with no bowel movement as of yet 04/06/2023 Patient seen and evaluated in follow-up this morning reports doing much better with physical therapy and plans for discharging today. Patient was started on metoprolol 25 mg tablet increasing heart rate overnight given an additional 25 mg and will increase the dose to 50 mg twice daily and heart rate is currently 110. Patient did receiving dock checker Dr. Serrano for presurgical clearance and was not maintained on any rate control medication prior to this. We'll continue with metoprolol 50 mg twice daily and instructed the patient to follow-up with Dr. Serrano this week. Patient denies feeling any dizziness or lightheadedness or palpitations. Patient does have history of atrial fibrillation and is anticoagulated. Orthopedics plans on discharging today. Patient is adamant ab out going home. Review of systems: Constitutional: No reports of fatigue, fever, or chills Cardiovascular: No reports of chest pain or palpitations Respiratory: No reports of shortness of breath or cough GI: No reports of nausea, vomiting, or diarrhea : No reports of dysuria or retention Neurovascular: reports of generalized weakness All medications have been reviewed PHYSICAL EXAMINATION: GENERAL: The patient is alert and oriented x3, not in any acute distress. Well developed, well nourished. HEENT: Pupils are round and equally reacting to light. EOMI. No scleral icterus. No conjunctival pallor. Normocephalic, atraumatic. No pharyngeal erythema. No thyromegaly. CARDIOVASCULAR: S1 and S2 present. Irregular PULMONARY: Chest is clear to auscultation, no wheezing or crackles. ABDOMEN: Soft, nontender, nondistended, normoactive bowel sounds. No palpable organomegaly. MUSCULOSKELETAL: No joint swelling or deformity. EXTREMITIES: No cyanosis, clubbing, or pedal edema. Left knee dressing is dry and intact with no significant swelling or erythema noted NEUROLOGICAL: Gross neurological examination did not reveal any focal deficits. Diffusely weak SKIN: No rashes. Assessment: -History of paroxysmal atrial fibrillation , was not on any rate control medications, is anticoagulated -Osteoarthritis primarily for which patient underwent left knee arthroplasty postop day 1 -Hyperlipidemia -GI prophylaxis -DVT prophylaxis: On anticoagulation -Full code Plan: Patient is continued on pain regimen per orthopedics and reporting pain is controlled. Patient does have pain pump of the left knee which is being discontinued Patient is on anticoagulation with history of A. fib. EKG showing a flutter and heart rates have been in the 130s and 140s. Heart rates improving today and 110 range after receiving additional dose of 25 mg of metoprolol overnight. Will increase to 50 mg twice daily and encourage the patient to follow-up with cardiology. Patient denies any dizziness or lightheadedness or feelings of palpitations. Patient was seen and evaluated with physical therapy again today and did much better including the stairs and will have multiple support members at home to assist. Patient is being cleared for discharge home with home care today Patient is adamant about going home. Again instructed patient to follow-up with receiving dock checker this week We will continue to follow with orthopedics during hospitalization Thank you kindly for this consultation The impression and plan of care has been dictated by Lissa Yao, Nurse Practitioner as directed. Dr. Toro MD I have performed a history and examination and MDM of this patient, discussed the same with the dictator, and agree with the dictator's assessment and plan as written ,documented as a scribe. Based on total visit time, I have performed more than 50% of the visit. Objective - Vital Signs Vital signs: Vital Signs Temp 98.9 F 04/06/23 07:37 Pulse 124 H 04/06/23 07:37 Resp 18 04/06/23 09:09 BP 147/92 04/06/23 07:37 Pulse Ox 95 04/06/23 07:37 FiO2 Intake & Output 04/05/23 04/06/23 04/06/23 18:59 06:59 18:59 Other: Voiding Method Toilet # Voids 4 # Bowel Movements 1 - Labs CBC & Chem 7: 04/06/23 05:38 04/06/23 05:38 Labs: Abnormal Lab Results - Last 24 Hours (Table) 04/05/23 04/05/23 04/06/23 Range/Units 18:00 18:00 05:38 WBC 11.8 H (3.8-10.6) k/uL RBC 4.25 L (4.30-5.90) m/uL Hct 38.1 L (39.0-53.0) % Neutrophils # 10.4 H 8.5 H (1.3-7.7) k/uL Lymphocytes # 0.6 L 0.7 L (1.0-4.8) k/uL Sodium 132 L (137-145) mmol/L Carbon Dioxide (22-30) mmol/L BUN 22 H (9-20) mg/dL Glucose 190 H (74-99) mg/dL Calcium 8.3 L (8.4-10.2) mg/dL 04/06/23 Range/Units 05:38 WBC (3.8-10.6) k/uL RBC (4.30-5.90) m/uL Hct (39.0-53.0) % Neutrophils # (1.3-7.7) k/uL Lymphocytes # (1.0-4.8) k/uL Sodium 136 L (137-145) mmol/L Carbon Dioxide 20 L (22-30) mmol/L BUN 21 H (9-20) mg/dL Glucose 116 H (74-99) mg/dL Calcium 8.2 L (8.4-10.2) mg/dL
== END 2023-04-06 14:03 | disposition home health service (06) | DRG 470 ==
LOC: OR 10:10 → 4SSUR 16:25 → OR 04-05 10:27 → 4SSUR 04-05 10:27
PROVIDERS: ADMIT Orthopaedic Surgery; ATTEND Orthopaedic Surgery
PROC: 3E0T3BZ Introduction of Anesthetic Agent into Peripheral Nerves and Plexi, Percutaneous Approach (ICD-10-PCS; 2023-04-03)
PROC: 0SRD0J9 Replacement of Left Knee Joint with Synthetic Substitute, Cemented, Open Approach (ICD-10-PCS; principal; 2023-04-03 12:30)
DX: M17.12 Unilateral primary osteoarthritis, left knee (principal); I48.92 Unspecified atrial flutter; M21.162 Varus deformity, not elsewhere classified, left knee; I48.0 Paroxysmal atrial fibrillation; E78.5 Hyperlipidemia, unspecified; I10 Essential (primary) hypertension; Z79.01 Long term (current) use of anticoagulants; Z79.899 Other long term (current) drug therapy; Z96.651 Presence of right artificial knee joint
CPT/HCPCS: 64448; 64999; 80048; 83735; 85025; 93005